=== PATIENT | female | born 1975 | race Caucasian/White ===

== ENCOUNTER 2019-03-11 16:37 | Emergency (ER) | payer SELFPAY ==
--- NOTE | 2019-03-11 16:47 | ERPHSYRPT ---
- History of Present Illness Time Seen by Provider: 03/11/19 16:46 Historian: patient Exam Limitations: no limitations Physician History: 43 y/o white femal with no cardiac hx presents with sudden onset of severe substernal cp without radiation. occurred at 1530 today. never had before. pt is on zantac for gerdz. 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 pt then suddenly collapsed while ambulating to find her . cp present on arrival. pt states she is under a lot of stress at work and works pm shift. pt denies soa and denies abd pain. Timing/Duration: today Activities at Onset: none Quality: sharpness, stabbing Location: substernal, central Chest Pain Radiation: no radiation Severity of Pain-Max: moderate Severity of Pain-Current: moderate Modifying Factors: Improves With: nothing. Worsens With: nitroglycerin, oxygen , aspirin Associated Symptoms: heartburn, No nausea, No vomiting, No palpitations, No abdominal pain, No shortness of breath, No cough, No headache Prior Chest Pain/Cardiac Workup: no prior chest pain Nitro Today/Relief: no nitro taken today Aspirin Treatment Today: provided by ED Allergies/Adverse Reactions: clindamycin Allergy (Verified 03/11/19 16:57) erythromycin base Allergy (Verified 03/11/19 16:57) Iodinated Contrast- Oral and IV Dye Allergy (Verified 03/11/19 19:02) metronidazole [From Flagyl] Allergy (Verified 03/11/19 16:57) Penicillins Allergy (Verified 03/11/19 16:57) - Review of Systems Constitutional: No Symptoms Eyes: No Symptoms Ears, Nose, & Throat: No Symptoms Respiratory: No Symptoms Cardiac: Chest Pain, No Palpitations, No Syncope Abdominal/Gastrointestinal: No Symptoms, No Abdominal Pain, No Nausea, No Vomiting, No Dysphagia Genitourinary Symptoms: No Symptoms Musculoskeletal: No Symptoms Skin: No Symptoms Neurological: No Symptoms Psychological: No Symptoms Endocrine: No Symptoms Hematologic/Lymphatic: No Symptoms Immunological/Allergic: No Symptoms All Other Systems: Reviewed and Negative - Past Medical History Neurological History: No Pertinent History ENT History: No Pertinent History Cardiac History: No Pertinent History Respiratory History: No Pertinent History Endocrine Medical History: No Pertinent History Musculoskeletal History: No Pertinent History GI Medical History: No Pertinent History History: No Pertinent History Psycho-Social History: No Pertinent History Female Reproductive Disorders: No Pertinent History - Past Surgical History Neuro Surgical History: No Pertinent History Cardiac: No Pertinent History Respiratory: No Pertinent History Gastrointestinal: No Pertinent History Genitourinary: No Pertinent History Musculoskeletal: No Pertinent History Female Surgical History: No Pertinent History - Nursing Vital Signs Nursing Vital Signs: Initial Vital Signs Pulse Rate 61 03/11/19 16:43 Respiratory Rate 20 03/11/19 16:43 Blood Pressure 124/77 03/11/19 16:43 O2 Sat by Pulse Oximetry 98 03/11/19 16:43 Pain Scale Pain Intensity 8 - Physical Exam General Appearance: mild distress, alert, anxiety Eye Exam: PERRL/EOMI Ears, Nose, Throat Exam: normal ENT inspection, moist mucous membranes Neck Exam: normal inspection, non-tender, supple, full range of motion Respiratory Exam: normal breath sounds, chest tenderness, lungs clear, No respiratory distress, No airway intact, No accessory muscle use, No rhonchi, No wheezing, No stridor Cardiovascular Exam: regular rate/rhythm, normal heart sounds, normal peripheral pulses Gastrointestinal/Abdomen Exam: soft, normal bowel sounds, No tenderness, No guarding, No rebound Pelvic Exam: not done Rectal Exam: not done Back Exam: normal inspection, normal range of motion, No CVA tenderness, No vertebral tenderness Extremity Exam: normal inspection, normal range of motion, pelvis stable Neurologic Exam: alert, oriented x 3, cooperative, 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, normal mood/affect, nml cerebellar function Skin Exam: normal color, warm, dry SpO2 Interpretation: normal O2 Delivery: Room Air - Course Nursing assessment & vital signs reviewed: Yes EKG Interpreted by Me: RATE (59), Sinus Rhythm, NORMAL AXIS, NORMAL INTERVALS, NORMAL QRS, NORMAL ST-T, Other (no comparison) Ordered Tests: Active Orders 24 hr Category Date Time Status [employer] STAT Care 03/11/19 16:52 Active EKG-ER Only STAT Care 03/11/19 16:52 Active IV Insertion STAT Care 03/11/19 16:52 Active Pulse Oximetry (ED) STAT Care 03/11/19 16:52 Active CHEST 1 VIEW (PORTABLE) Stat Exams 03/11/19 16:52 Completed CHEST WITH CONTRAST [CT] Stat Exams 03/11/19 18:02 Taken CBC W DIFF Stat Lab 03/11/19 17:10 Completed CMP Stat Lab 03/11/19 17:10 Completed D-DIMER QUANTITATION Stat Lab 03/11/19 17:10 Completed NT PRO BNP Stat Lab 03/11/19 17:10 Completed TROPONIN Q3H Lab 03/11/19 17:10 Completed TROPONIN Q3H Lab 03/11/19 20:00 Ordered TROPONIN Q3H Lab 03/11/19 23:00 Ordered TROPONIN Q3H Lab 03/12/19 02:00 Ordered TROPONIN Q3H Lab 03/12/19 05:00 Ordered Medication Summary Discontinued Medications Generic Name Dose Route Start Last Admin Trade Name Danteq PRN Reason Stop Dose Admin Acetaminophen 650 mg 03/11/19 18:54 03/11/19 19:00 Tylenol 325 Mg PO 03/11/19 18:55 Not Given STAT STA Acetaminophen Confirm 03/11/19 18:57 Tylenol 325 Mg Administered 03/11/19 18:58 Dose 650 mg .ROUTE .STK-MED ONE Aspirin 324 mg 03/11/19 16:52 03/11/19 17:21 Baby Aspirin 81 Mg Chew PO 03/11/19 16:53 324 mg STAT ONE Administration Aspirin Confirm 03/11/19 18:34 Baby Aspirin 81 Mg Chew Administered 03/11/19 18:35 Dose 324 mg .ROUTE .STK-MED ONE Diphenhydramine HCl 50 mg 03/11/19 18:55 03/11/19 19:00 Benadryl 50 Mg/Ml IV 03/11/19 18:56 50 mg STAT ONE Administration Diphenhydramine HCl Confirm 03/11/19 18:57 Benadryl 50 Mg/Ml Administered 03/11/19 18:58 Dose 50 mg .ROUTE .STK-MED ONE Famotidine Confirm 03/11/19 19:00 Pepcid 20 Mg Vial Administered 03/11/19 19:01 Dose 40 mg IV .STK-MED ONE Famotidine 40 mg 03/11/19 19:05 03/11/19 19:06 Pepcid 20 Mg Vial IV 03/11/19 19:06 40 mg STAT ONE Administration Methylprednisolone Sodium Succinate 125 mg 03/11/19 18:55 03/11/19 19:00 Solu-Medrol 125 Mg IV 03/11/19 18:56 125 mg STAT ONE Administration Methylprednisolone Sodium Succinate Confirm 03/11/19 18:57 Solu-Medrol 125 Mg Administered 03/11/19 18:58 Dose 125 mg .ROUTE .STK-MED ONE Lab/Rad Data: Laboratory Result Diagrams 03/11/19 17:10 03/11/19 17:10 Laboratory Results 03/11/19 03/11/19 03/11/19 Range/Units 17:10 17:10 17:10 WBC (4.0-10.5) K/mm3 RBC (4.1-5.4) M/mm3 Hgb (12.0-16.0) gm/dl Hct (35-47) % MCV (78-100) fl MCH (26-32) pg MCHC (32-36) g/dl RDW (11.5-14.0) % Plt Count (150-450) K/mm3 MPV (6-9.5) fl Gran % (36.0-66.0) % Eos # (Auto) (0-0.5) Absolute Lymphs (auto) (1.0-4.6) Absolute Monos (auto) (0.0-1.3) Lymphocytes % (24.0-44.0) % Monocytes % (0.0-12.0) % Eosinophils % (0.00-5.0) % Basophils % (0.0-0.4) % Absolute Granulocytes (1.4-6.9) Basophils # (0-0.4) D-Dimer 608 H* (215-500) ng/mL Sodium 141 (137-145) mmol/L Potassium 3.5 (3.5-5.1) mmol/L Chloride 106 (98-107) mmol/L Carbon Dioxide 25 (22-30) mmol/L Anion Gap 12.6 (5-15) MEQ/L BUN 7 (7-17) mg/dL Creatinine 0.78 (0.52-1.04) mg/dL Estimated GFR > 60.0 ML/MIN Glucose 102 (74-106) mg/dL Calcium 8.9 (8.4-10.2) mg/dL Total Bilirubin 0.20 (0.2-1.3) mg/dL AST 20 (14-36) U/L ALT 13 (0-35) U/L Alkaline Phosphatase 116 (38-126) U/L Troponin I < 0.012 (0.000-0.034) ng/mL NT-Pro-B Natriuret Pep 105 (0-450) pg/mL Serum Total Protein 7.3 (6.3-8.2) g/dL Albumin 3.9 (3.5-5.0) g/dL 03/11/19 Range/Units 17:10 WBC 7.1 (4.0-10.5) K/mm3 RBC 4.66 (4.1-5.4) M/mm3 Hgb 12.5 (12.0-16.0) gm/dl Hct 38.8 (35-47) % MCV 83.3 (78-100) fl MCH 26.8 (26-32) pg MCHC 32.2 (32-36) g/dl RDW 14.1 H (11.5-14.0) % Plt Count 312 (150-450) K/mm3 MPV 10.7 H (6-9.5) fl Gran % 57.7 (36.0-66.0) % Eos # (Auto) 0.29 (0-0.5) Absolute Lymphs (auto) 2.15 (1.0-4.6) Absolute Monos (auto) 0.53 (0.0-1.3) Lymphocytes % 30.4 (24.0-44.0) % Monocytes % 7.5 (0.0-12.0) % Eosinophils % 4.1 (0.00-5.0) % Basophils % 0.3 (0.0-0.4) % Absolute Granulocytes 4.09 (1.4-6.9) Basophils # 0.02 (0-0.4) D-Dimer (215-500) ng/mL Sodium (137-145) mmol/L Potassium (3.5-5.1) mmol/L Chloride (98-107) mmol/L Carbon Dioxide (22-30) mmol/L Anion Gap (5-15) MEQ/L BUN (7-17) mg/dL Creatinine (0.52-1.04) mg/dL Estimated GFR ML/MIN Glucose (74-106) mg/dL Calcium (8.4-10.2) mg/dL Total Bilirubin (0.2-1.3) mg/dL AST (14-36) U/L ALT (0-35) U/L Alkaline Phosphatase (38-126) U/L Troponin I (0.000-0.034) ng/mL NT-Pro-B Natriuret Pep (0-450) pg/mL Serum Total Protein (6.3-8.2) g/dL Albumin (3.5-5.0) g/dL - Progress Progress: improved, re-examined Air Movement: good Progress Note: 03/11/19 18:55 pt returns from [facility] chest and breaking out in a rash. will give pepcid, benadryl and steroids. 03/11/19 19:25 no cp. rash and assoc sx improving after benadryl, steroids and pepcid 03/11/19 19:54 pts rash nearly completely gone. no stridor, no wheezing. no cp cta chest-no pulm emboli. normal Blood Culture(s) Obtained: No Antibiotics given: No Counseled pt/family regarding: lab results, diagnosis, need for follow-up, rad results - Departure Departure Disposition: Home Clinical Impression: Chest pain, Allergic reaction to contrast dye, Bradycardia Condition: Stable Critical Care Time: No Referrals: Provider,Unknown [NON-STAFF PHY W/O PRIVILEGES] - Additional Instructions: continue benadryl 25mg orally 3 times daily for 4 days. continue your zantac 2 times daily. follow up with primary doctor for further management of your low heart rate. return your holter monitor as directed. Forms: Work/School Release Form Prescriptions: Prednisone 10 mg [Deltasone 10 mg] 10 mg PO TID #12 tablet
--- NOTE | 2019-03-11 17:09 | XRAY ---
Indication: Chest pain. Comparison: None Portable chest demonstrates normal heart, lungs, and bony thorax with a few incidental tiny calcified granulomas.
[2019-03-11] MEDS: BABY ASPIRIN 81 MG CHEW PO ONE (17:21)
[2019-03-11 17:25] LABS: BASOPHIL % 0.3 % (0.0-0.4); Basophil (Absolute #) 0.02 (0-0.4); Eosinophil % 4.1 % (0.00-5.0); Eosinophil (Absolute #) 0.29 (0-0.5); Granulocyte Absolute (ANC) 4.09 (1.4-6.9); Granulocytes % 57.7 % (36.0-66.0); Hematocrit 38.8 % (35-47); Hemoglobin 12.5 gm/dl (12.0-16.0); Lymphocyte (Absolute #) 2.15 (1.0-4.6); Lymphocytes % 30.4 % (24.0-44.0); Mean Cell Volume 83.3 fl (78-100); Mean Corpuscular Hemoglobin 26.8 pg (26-32); Mean Corpuscular Hgb Concent. 32.2 g/dl (32-36); Mean Platelet Volume 10.7 fl (6-9.5); Monocyte (Absolute #) 0.53 (0.0-1.3); Monocytes % 7.5 % (0.0-12.0); Platelet Count 312 K/mm3 (150-450); Red Blood Count 4.66 M/mm3 (4.1-5.4); Red Cell Distribution Width 14.1 % (11.5-14.0); White Blood Count 7.1 K/mm3 (4.0-10.5)
[2019-03-11 17:48] LABS: ALBUMIN 3.9 g/dL (3.5-5.0); ALKALINE PHOSPHATASE 116 U/L (38-126); ANION GAP 12.6 MEQ/L (5-15); BLOOD UREA NITROGEN 7 mg/dL (7-17); CHLORIDE 106 mmol/L (98-107); Calcium 8.9 mg/dL (8.4-10.2); Carbon Dioxide 25 mmol/L (22-30); Creatinine 1 0.78 mg/dL (0.52-1.04); Glucose 102 mg/dL (74-106); NT PRO BNP 105 pg/mL (0-450); Potassium 3.5 mmol/L (3.5-5.1); SGOT/AST 20 U/L (14-36); SGPT/ALT 13 U/L (0-35); SODIUM 141 mmol/L (137-145); Total Protein 7.3 g/dL (6.3-8.2)
[2019-03-11] MEDS ORDERED: BABY ASPIRIN 81 MG CHEW ONE (18:34)
[2019-03-11] MEDS ORDERED: BENADRYL 50 MG/ML ONE (18:57)
[2019-03-11] MEDS ORDERED: solu-MEDROL 125 MG ONE (18:57)
[2019-03-11] MEDS ORDERED: TYLENOL 325 MG ONE (18:57)
[2019-03-11] MEDS: solu-MEDROL 125 MG IV ONE (19:00)
[2019-03-11] MEDS ORDERED: Pepcid 20 MG VIAL IV ONE (19:00)
[2019-03-11] MEDS: BENADRYL 50 MG/ML IV ONE (19:00)
[2019-03-11] MEDS: TYLENOL 325 MG PO STA (19:00)
[2019-03-11] MEDS: Pepcid 20 MG VIAL IV ONE (19:06)
[2019-03-11 20:23] VITALS: BP 109/77; PULSE 88; O2SAT 99
--- NOTE | 2019-03-12 08:47 | XRAY ---
Indication: Chest pain. Elevated d-dimer. Multiple contiguous axial images obtained through the chest using 80 cc Isovue 370 contrast and PE protocol. Comparison: None There is good opacification of the pulmonary arteries to include the lobar and segmental branches. No filling defect or pulmonary embolus. Heart is not enlarged. Aorta is normal in course and caliber. No pathologic mediastinal/hilar lymphadenopathy. Small hiatal hernia. Lungs are inflated and clear. Bony thorax intact. Limited upper abdomen including adrenal glands are unremarkable. Impression: 1. Small hiatal hernia. 2. Remaining CT chest with contrast exam is negative. CT DI 23.44
--- NOTE | 2019-03-17 13:42 | HOLTER ---
DATE OF PROCEDURE: 03/12/2019 PROCEDURE: Holter monitor report. REASON FOR EXAMINATION: Chest pain, bradycardia. DESCRIPTION OF PROCEDURE: The patient was monitored using Holter monitor for about 23 hours and 37 minutes. The patient was in sinus rhythm throughout the recording with average rate of 65 beats/minute. The maximum rate was 120 beats/minute and the minimum rate was 49 beats/minute at 0344 hours. There was no evidence of any ventricular arrhythmia noted. There were rare premature atrial ectopies noted. No evidence of any supraventricular tachyarrhythmia. There was no evidence of any long pauses or blocks noted. IMPRESSION: 1) SINUS RHYTHM WITH BRADYCARDIC EPISODE DURING THE NIGHT. 2) RARE PAC'S.
== END 2019-03-11 20:25 | disposition home or self-care (01) ==
LOC: ED 16:37
DX: R07.9 Chest pain, unspecified (principal); T50.995A Adverse effect of other drugs, medicaments and biological substances, initial encounter; R00.1 Bradycardia, unspecified
CPT/HCPCS: 36000; 36415; 71045; 71260; 80053; 83880; 84484; 85025; 85379; 93005; 93041; 93225; 96374; 96375; 99284; J1200; J2930; A9270-GY

== ENCOUNTER 2020-01-08 19:30 | Inpatient (IN) | payer BC, OTHER ==
[2020-01-08] MEDS ORDERED: Zofran 4 MG/2 ML VIAL IV ONE (20:03)
[2020-01-08] MEDS ORDERED: Sodium Chloride 0.9% 1000 ML 1,000 ML IV STA ×2 (20:03→22:02)
[2020-01-08 20:23] LABS: Absolute Neutrophil Ct (ANC) 13.08 (1.4-6.9); BASOPHIL % 0.1 % (0.0-0.4); Basophil (Absolute #) 0.01 (0-0.4); Eosinophil (Absolute #) 0 (0-0.5); Hematocrit 39.7 % (35-47); Hemoglobin 12.9 gm/dl (12.0-16.0); Lymphocyte (Absolute #) 0.71 (1.0-4.6); Lymphocytes % 4.9 % (24.0-44.0); Mean Cell Volume 82.9 fl (78-100); Mean Corpuscular Hemoglobin 26.9 pg (26-32); Mean Corpuscular Hgb Concent. 32.5 g/dl (32-36); Mean Platelet Volume 10.8 fl (7.5-11.0); Monocyte (Absolute #) 0.66 (0.0-1.3); Monocytes % 4.6 % (0.0-12.0); Neutrophil % 90.4 % (36.0-66.0); Platelet Count 301 K/mm3 (150-450); Red Blood Count 4.79 M/mm3 (4.1-5.4); Red Cell Distribution Width 14.8 % (11.5-14.0); White Blood Count 14.5 K/mm3 (4.0-10.5)
[2020-01-08 20:35] LABS: ALKALINE PHOSPHATASE 257 U/L (38-126); AMYLASE 913 U/L (30-110); ANION GAP 12.1 MEQ/L (5-15); BLOOD UREA NITROGEN 14 mg/dL (7-17); CHLORIDE 104 mmol/L (98-107); Calcium 8.7 mg/dL (8.4-10.2); Carbon Dioxide 25 mmol/L (22-30); Creatinine 1 0.61 mg/dL (0.52-1.04); Glucose 151 mg/dL (74-106); Potassium 3.9 mmol/L (3.5-5.1); SGOT/AST 297 U/L (14-36); SGPT/ALT 297 U/L (0-35); SODIUM 138 mmol/L (137-145); Total Protein 7.3 g/dL (6.3-8.2)
[2020-01-08] MEDS ORDERED: Sodium Chloride 0.9% 1000 ML 1,000 ML ONE ×2 (20:46→22:19)
[2020-01-08] MEDS ORDERED: Zofran 4 MG/2 ML VIAL ONE (20:46)
--- NOTE | 2020-01-08 21:35 | ERPHSYRPT ---
- History of Present Illness Time Seen by Provider: 01/08/20 20:25 Historian: patient, family Patient Subjective Stated Complaint: Patient stated she woke up around 1000 this am and started vomiting. Patient stated " I tried to tough it out at home, but the pain in my ABD has just been getting worse. Patient states " my pain starts on the upper side of my ABD then it radiates to the center and around to my back". I have been having loose stools all day. Triage Nursing Assessment: Patient arrived in ER via W/C with navidisband. Patient alert and orientated times 4. Patient answers questions appropriatley. Patient with hypo-active BS in all 4 quads. Patient ABD soft round non-distended. Patient with complaints of pain upon palpitation to left side and center. Patient denies SOB. Patient denies chest pain. Oral mucosa moist. Skin turgor < 3 seconds. No S/S of dehydration noted. Physician History: This is a 44-year-old obese white female who presents with left upper quadrant abdominal pain that radiates to her left flank. Patient woke up this morning at 10 AM and was having significant abdominal pain with associated vomiting. Patient has had loose stools throughout the day as well. A couple of days ago the patient states that she actually thought she passed a kidney stone. Patient has not noticed any blood in her urine. Patient is allergic to IV contrast. Patient denies shortness of breath and denies chest pain Timing/Duration: today (This morning) Activities at Onset: none Quality: sharpness, stabbing Abdominal Pain Onset Location: LUQ Pain Radiation: flank (Left) Severity of Pain-Max: moderate Severity of Pain-Current: moderate Modifying Factors: Improves With: nothing. Worsens With: vomiting Associated Symptoms: other (Loose stools), No chest pain, No nausea, No vomiting Previous symptoms: no prior history Allergies/Adverse Reactions: clindamycin Allergy (Verified 01/08/20 19:59) erythromycin base Allergy (Verified 01/08/20 19:59) Iodinated Contrast Media [Iodinated Contrast- Oral and IV Dye] Allergy ( Verified 01/08/20 19:59) metronidazole [From Flagyl] Allergy (Verified 01/08/20 19:59) Penicillins Allergy (Verified 01/08/20 19:59) Home Medications: Esomeprazole Magnesium [Nexium] 20 mg PO DAILY 01/08/20 [History] Fluoxetine HCl 20 mg [Prozac 20 MG] 20 mg PO DAILY 01/08/20 [History] Hx Tetanus, Diphtheria Vaccination/Date Given: No Hx Influenza Vaccination/Date Given: No Hx Pneumococcal Vaccination/Date Given: No Immunizations Up to Date: Yes - Review of Systems Constitutional: No Symptoms Eyes: No Symptoms Ears, Nose, & Throat: No Symptoms Respiratory: No Symptoms Cardiac: No Symptoms, No Chest Pain Abdominal/Gastrointestinal: Abdominal Pain, No Nausea, No Vomiting Genitourinary Symptoms: No Symptoms, No Dysuria, No Frequency, No Hematuria Musculoskeletal: No Symptoms Skin: No Symptoms Neurological: No Symptoms Psychological: No Symptoms Endocrine: No Symptoms Hematologic/Lymphatic: No Symptoms Immunological/Allergic: No Symptoms All Other Systems: Reviewed and Negative - Past Medical History Pertinent Past Medical History: No Neurological History: No Pertinent History ENT History: No Pertinent History Cardiac History: No Pertinent History Respiratory History: No Pertinent History Endocrine Medical History: No Pertinent History Musculoskeletal History: No Pertinent History GI Medical History: No Pertinent History History: No Pertinent History Psycho-Social History: Depression Female Reproductive Disorders: No Pertinent History - Past Surgical History Past Surgical History: Yes Neuro Surgical History: No Pertinent History Cardiac: No Pertinent History Respiratory: No Pertinent History Gastrointestinal: No Pertinent History Genitourinary: No Pertinent History Musculoskeletal: No Pertinent History Female Surgical History: No Pertinent History Other Surgical History: wrist surgery - Social History Smoking Status: Former smoker Exposure to second hand smoke: Yes Drug Use: none Patient Lives Alone: No - Female History Hx Last Menstrual Period: Ablation Hx Now: No - Nursing Vital Signs Nursing Vital Signs: Initial Vital Signs Temperature 97.8 F 01/08/20 19:48 Pulse Rate 61 01/08/20 19:48 Respiratory Rate 18 01/08/20 19:48 Blood Pressure 104/68 01/08/20 19:48 O2 Sat by Pulse Oximetry 100 01/08/20 19:48 Pain Scale Pain Intensity 7 - Physical Exam General Appearance: moderate distress, alert, anxiety, obese Eye Exam: PERRL/EOMI, eyes nml inspection Ears, Nose, Throat Exam: normal ENT inspection, moist mucous membranes Neck Exam: normal inspection, non-tender, supple, full range of motion Respiratory Exam: normal breath sounds, lungs clear, airway intact, No chest tenderness, No respiratory distress Cardiovascular Exam: regular rate/rhythm, normal heart sounds, normal peripheral pulses Gastrointestinal/Abdomen Exam: soft, normal bowel sounds, tenderness (Left upper quadrant), guarding, No rebound Pelvic Exam: not done Rectal Exam: not done Back Exam: normal inspection, normal range of motion, CVA tenderness (Left), No vertebral tenderness Extremity Exam: normal inspection, normal range of motion, pelvis stable Neurologic Exam: alert, oriented x 3, cooperative, 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 Skin Exam: normal color, warm, dry Lymphatic Exam: No adenopathy SpO2 Interpretation: normal SpO2: 100 O2 Delivery: Room Air Ordered Tests: Active Orders 24 hr Category Date Time Status IV Insertion STAT Care 01/08/20 20:03 Active ABDOMEN AND PELVIS W/0 CONTRAS [CT] Stat Exams 01/08/20 20:04 Taken AMYLASE Stat Lab 01/08/20 20:15 Completed CBC W DIFF Stat Lab 01/08/20 20:15 Completed CMP Stat Lab 01/08/20 20:15 Completed CULTURE,URINE Stat Lab 01/08/20 21:41 Received LIPASE Stat Lab 01/08/20 20:15 Completed Lactic Acid Stat Lab 01/08/20 22:45 Completed UA W/RFX UR CULTURE Stat Lab 01/08/20 21:41 Completed Transfer Order Routine Transfer 01/08/20 Ordered Medication Summary Discontinued Medications Generic Name Dose Route Start Last Admin Trade Name Freq PRN Reason Stop Dose Admin Hydromorphone HCl 1 mg 01/08/20 22:03 01/08/20 22:21 Hydromorphone 1 Mg/Ml Ampule IV 01/08/20 22:04 1 mg STAT ONE Administration Hydromorphone HCl Confirm 01/08/20 22:19 Hydromorphone 1 Mg/Ml Ampule Administered 01/08/20 22:20 Dose 1 mg .ROUTE .STK-MED ONE Sodium Chloride 1,000 mls @ 999 mls/hr 01/08/20 20:03 01/08/20 20:49 Sodium Chloride 0.9% 1000 Ml IV 01/08/20 21:03 999 mls/hr .Q1H1M STA Administration Sodium Chloride Confirm 01/08/20 20:46 Sodium Chloride 0.9% 1000 Ml Administered 01/08/20 20:47 Dose 1,000 mls @ ud .ROUTE .STK-MED ONE Sodium Chloride 1,000 mls @ 999 mls/hr 01/08/20 22:02 01/08/20 22:22 Sodium Chloride 0.9% 1000 Ml IV 01/08/20 23:02 999 mls/hr .Q1H1M STA Administration Sodium Chloride Confirm 01/08/20 22:19 Sodium Chloride 0.9% 1000 Ml Administered 01/08/20 22:20 Dose 1,000 mls @ ud .ROUTE .STK-MED ONE Ondansetron HCl 4 mg 01/08/20 20:03 01/08/20 20:50 Zofran 4 Mg/2 Ml Vial IV 01/08/20 20:04 4 mg STAT ONE Administration Ondansetron HCl Confirm 01/08/20 20:46 Zofran 4 Mg/2 Ml Vial Administered 01/08/20 20:47 Dose 4 mg .ROUTE .STK-MED ONE Lab/Rad Data: Laboratory Result Diagrams 01/08/20 20:15 01/08/20 20:15 Laboratory Results 01/08/20 01/08/20 01/08/20 Range/Units 22:45 21:41 20:15 WBC (4.0-10.5) K/mm3 RBC (4.1-5.4) M/mm3 Hgb (12.0-16.0) gm/dl Hct (35-47) % MCV (78-100) fl MCH (26-32) pg MCHC (32-36) g/dl RDW (11.5-14.0) % Plt Count (150-450) K/mm3 MPV (7.5-11.0) fl Gran % (36.0-66.0) % Eos # (Auto) (0-0.5) Absolute Lymphs (auto) (1.0-4.6) Absolute Monos (auto) (0.0-1.3) Lymphocytes % (24.0-44.0) % Monocytes % (0.0-12.0) % Eosinophils % (0.00-5.0) % Basophils % (0.0-0.4) % Absolute Granulocytes (1.4-6.9) Basophils # (0-0.4) Sodium 138 (137-145) mmol/L Potassium 3.9 (3.5-5.1) mmol/L Chloride 104 (98-107) mmol/L Carbon Dioxide 25 (22-30) mmol/L Anion Gap 12.1 (5-15) MEQ/L BUN 14 (7-17) mg/dL Creatinine 0.61 (0.52-1.04) mg/dL Estimated GFR > 60.0 ML/MIN Glucose 151 H (74-106) mg/dL Lactic Acid 1.5 (0.4-2.0) Calcium 8.7 (8.4-10.2) mg/dL Total Bilirubin 0.70 (0.2-1.3) mg/dL AST 297 H (14-36) U/L ALT 297 H (0-35) U/L Alkaline Phosphatase 257 H (38-126) U/L Serum Total Protein 7.3 (6.3-8.2) g/dL Albumin 4.0 (3.5-5.0) g/dL Amylase 913 H (30-110) U/L Lipase 44820 H (23-300) U/L Urine Color YELLOW (YELLOW) Urine Appearance TURBID (CLEAR) Urine pH 5.0 (5-6) Ur Specific Newton 1.030 (1.005-1.025) Urine Protein 30 (Negative) Urine Ketones NEGATIVE (NEGATIVE) Urine Blood MODERATE (0-5) Khai/ul Urine Nitrite NEGATIVE (NEGATIVE) Urine Bilirubin NEGATIVE (NEGATIVE) Urine Urobilinogen NEGATIVE (0-1) mg/dL Ur Leukocyte Esterase SMALL (NEGATIVE) Urine WBC (Auto) NONE (0-5) /HPF Urine RBC (Auto) NONE (0-2) /HPF U Epithel Cells (Auto) NONE (FEW) /HPF Urine Bacteria (Auto) NONE (NEGATIVE) /HPF Urine Mucus (Auto) SLIGHT (NEGATIVE) /HPF Urine Culture Reflexed YES (NO) Urine Glucose NEGATIVE (NEGATIVE) mg/dL 01/08/20 Range/Units 20:15 WBC 14.5 H (4.0-10.5) K/mm3 RBC 4.79 (4.1-5.4) M/mm3 Hgb 12.9 (12.0-16.0) gm/dl Hct 39.7 (35-47) % MCV 82.9 (78-100) fl MCH 26.9 (26-32) pg MCHC 32.5 (32-36) g/dl RDW 14.8 H (11.5-14.0) % Plt Count 301 (150-450) K/mm3 MPV 10.8 (7.5-11.0) fl Gran % 90.4 H (36.0-66.0) % Eos # (Auto) 0 (0-0.5) Absolute Lymphs (auto) 0.71 L (1.0-4.6) Absolute Monos (auto) 0.66 (0.0-1.3) Lymphocytes % 4.9 L (24.0-44.0) % Monocytes % 4.6 (0.0-12.0) % Eosinophils % 0.0 (0.00-5.0) % Basophils % 0.1 (0.0-0.4) % Absolute Granulocytes 13.08 H (1.4-6.9) Basophils # 0.01 (0-0.4) Sodium (137-145) mmol/L Potassium (3.5-5.1) mmol/L Chloride (98-107) mmol/L Carbon Dioxide (22-30) mmol/L Anion Gap (5-15) MEQ/L BUN (7-17) mg/dL Creatinine (0.52-1.04) mg/dL Estimated GFR ML/MIN Glucose (74-106) mg/dL Lactic Acid (0.4-2.0) Calcium (8.4-10.2) mg/dL Total Bilirubin (0.2-1.3) mg/dL AST (14-36) U/L ALT (0-35) U/L Alkaline Phosphatase (38-126) U/L Serum Total Protein (6.3-8.2) g/dL Albumin (3.5-5.0) g/dL Amylase (30-110) U/L Lipase (23-300) U/L Urine Color (YELLOW) Urine Appearance (CLEAR) Urine pH (5-6) Ur Specific Newton (1.005-1.025) Urine Protein (Negative) Urine Ketones (NEGATIVE) Urine Blood (0-5) Khai/ul Urine Nitrite (NEGATIVE) Urine Bilirubin (NEGATIVE) Urine Urobilinogen (0-1) mg/dL Ur Leukocyte Esterase (NEGATIVE) Urine WBC (Auto) (0-5) /HPF Urine RBC (Auto) (0-2) /HPF U Epithel Cells (Auto) (FEW) /HPF Urine Bacteria (Auto) (NEGATIVE) /HPF Urine Mucus (Auto) (NEGATIVE) /HPF Urine Culture Reflexed (NO) Urine Glucose (NEGATIVE) mg/dL - Progress Progress: improved, re-examined Progress Note: 01/08/20 23:27 CAT scan of the abdomen and pelvis shows a pancreas that is enlarged and edematous. There is peripancreatic stranding with fluid there is fluid anterior in the pararenal space and fluid in the. Colic gutter bilaterally. There is no evidence of pancreatic necrosis abscess or air. The there is evidence of cholelithiasis but no biliary dilatation seen. There is mild thickening of the stomach wall and this is likely reactive. I spoke with Dr. Stark. I reviewed the patient's history, condition, laboratory results and CAT scan findings. We will admit her into the hospital with IV hydration, pain control, antiemetics, and repeat laboratory data. Discussed with DrEkta: Kinza Gilbert Will see patient in: hospital (full admit) Counseled pt/family regarding: lab results, diagnosis, rad results - Departure Departure Disposition: Home, In-patient Admission Clinical Impression: Acute pancreatitis, Leukocytosis, Vomiting and diarrhea, Elevated liver enzymes Condition: Stable Critical Care Time: No Referrals: CAROLYN MORALES DO [Primary Care Provider] -
[2020-01-08 21:36] LABS: LIPASE 14086 U/L (23-300)
[2020-01-08] MEDS ORDERED: Hydromorphone 1 mg/ml Ampule IV ONE (22:03)
[2020-01-08] MEDS ORDERED: Hydromorphone 1 mg/ml Ampule ONE (22:19)
[2020-01-08 22:41] LABS: Appearance TURBID (CLEAR); Bilirubin NEGATIVE (NEGATIVE); Blood MODERATE Ery/ul (0-5); Glucose NEGATIVE (NEGATIVE); Ketones NEGATIVE (NEGATIVE); Leukocyte Esterase SMALL (NEGATIVE); Mucus SLIGHT /HPF (NEGATIVE); Nitrite NEGATIVE (NEGATIVE); Protein,Urine Dip 30 (Negative); Urobilinogen NEGATIVE mg/dL (0-1)
[2020-01-09] MEDS ORDERED: FEVERALL 650 MG PR PRN (00:54)
[2020-01-09] MEDS: Sodium Chloride 0.9% 1000 ML 1,000 ML IV SCH ×3 (01:30→15:29)
[2020-01-09] MEDS: Zofran 4 MG/2 ML VIAL IV PRN (01:51)
[2020-01-09] MEDS: DILAUDID 2 MG INJECTION IV PRN ×5 (02:23→22:39)
[2020-01-09 04:54] LABS: Absolute Neutrophil Ct (ANC) 12.38 (1.4-6.9); BASOPHIL % 0.1 % (0.0-0.4); Basophil (Absolute #) 0.01 (0-0.4); Eosinophil % 0.1 % (0.00-5.0); Eosinophil (Absolute #) 0.01 (0-0.5); Hematocrit 34.2 % (35-47); Hemoglobin 11.1 gm/dl (12.0-16.0); Lymphocyte (Absolute #) 1.13 (1.0-4.6); Lymphocytes % 7.9 % (24.0-44.0); Mean Cell Volume 83.4 fl (78-100); Mean Corpuscular Hemoglobin 27.1 pg (26-32); Mean Corpuscular Hgb Concent. 32.5 g/dl (32-36); Mean Platelet Volume 10.8 fl (7.5-11.0); Monocyte (Absolute #) 0.83 (0.0-1.3); Monocytes % 5.8 % (0.0-12.0); Neutrophil % 86.1 % (36.0-66.0); Platelet Count 268 K/mm3 (150-450); Red Cell Distribution Width 14.9 % (11.5-14.0); White Blood Count 14.4 K/mm3 (4.0-10.5)
[2020-01-09 04:56] LABS: ALBUMIN 3.2 g/dL (3.5-5.0); ALKALINE PHOSPHATASE 184 U/L (38-126); ANION GAP 8.6 MEQ/L (5-15); BLOOD UREA NITROGEN 13 mg/dL (7-17); CHLORIDE 110 mmol/L (98-107); Calcium 7.6 mg/dL (8.4-10.2); Carbon Dioxide 23 mmol/L (22-30); Creatinine 1 0.44 mg/dL (0.52-1.04); Glucose 113 mg/dL (74-106); Potassium 3.3 mmol/L (3.5-5.1); SGOT/AST 148 U/L (14-36); SGPT/ALT 217 U/L (0-35); SODIUM 138 mmol/L (137-145); Total Protein 6.1 g/dL (6.3-8.2)
--- NOTE | 2020-01-09 08:09 | XRAY ---
Indication: Pain with palpitation. Nausea, vomiting, diarrhea. Multiple contiguous axial images obtained through the abdomen and pelvis without contrast as ordered. Comparison: None Lung bases are clear. Heart is not enlarged. Small hiatal hernia. Noncontrasted stomach and bowel loops appear nonobstructed. Pancreas appears diffusely enlarged and edematous with peripancreatic stranding favoring acute pancreatitis. Small free fluid in abdomen and pelvis presumed reactive. No walled off fluid collection or free air. Duodenal wall thickening also favored to be reactive. Small 1 cm gallstone. Prominent and nodular appearing uterus, suggestive of uterine leiomyomatosis. Remaining liver, gallbladder, spleen, adrenal glands, kidneys, ureters, bladder, and aorta appear unremarkable for noncontrast exam. Osseous structures intact. Impression: 1. CT findings favoring acute pancreatitis with reactive small abdomen/pelvic free fluid and duodenal wall thickening. 2. Incidental gallstone and uterine leiomyomatosis. Comment: Preliminary interpretation was made by [facility]. No critical discrepancy.
[2020-01-09] MEDS: D5W/0.45NS W/ 20mEq KCl 1000 ML 1,000 ML IV SCH (18:54)
--- NOTE | 2020-01-09 19:56 | XRAY ---
Indication: Acute pancreatitis. Two-dimensional gallbladder sonogram performed. Comparison: None Gallbladder normally distended with a few subcentimeter gallstones near the fundus. No abnormal gallbladder wall thickening or pericholecystic fluid. Common bile duct measures 7 mm. No intrahepatic biliary distention. Visualized portions of the liver appear homogeneous without hepatomegaly. Tiny perihepatic free fluid. Visualized pancreatic head unremarkable. Right kidney appears normal measuring 11.2 cm in length. Impression: Cholelithiasis without cholecystitis or biliary distention. Tiny perihepatic fluid presumed related to pancreatitis.
--- NOTE | 2020-01-09 23:18 | PCM.HP ---
History of Present Illness - Chief Complaint Chief Complaint: Acute pancreatitis, Leukocytosis, vomiting and diarrhea History of Present Illness: is a 44 year old female who presented to ER with acute onset of severe left upper abdominal pain and vomiting. She has had loose stools all week and some nausea , awoke this morning with vomiting then upper abdominal pain. Denies fever.has not eaten anything and only sips of fluid the day of admission. Patient is in good health otherwise. She does have chronic sinusitis and depression controlled on meds and obesity. She still has her gallbladder and has no Hx alcohol abuse or drug abuse. - Review of Systems Constitutional: No Symptoms Eyes: No Symptoms Ears, Nose, & Throat: Nose Congestion (uses flonase) Respiratory: No Symptoms Cardiac: No Symptoms Abdominal/Gastrointestinal: Abdominal Pain, Nausea, Vomiting Genitourinary Symptoms: No Symptoms Musculoskeletal: No Symptoms Skin: No Symptoms Neurological: No Symptoms Psychological: Depression (controlled on meds) Endocrine: No Symptoms Hematologic/Lymphatic: No Symptoms Immunological/Allergic: Other (chronic sinusitis due to env allergies) Medications & Allergies Home Medications: Home Medication List Esomeprazole Magnesium [Nexium] 20 mg PO HS 01/08/20 [History Confirmed 01/09/20 ] Fluoxetine HCl 20 mg [Prozac 20 MG] 20 mg PO HS 01/08/20 [History Confirmed 01/09/20] Allergies/Adverse Reactions: Allergies Allergy/AdvReac Type Severity Reaction Status Date / Time Iodinated Contrast Media Allergy Severe Tightness Verified 01/09/20 01:02 [Iodinated Contrast- Oral of Throat and IV Dye] metronidazole [From Flagyl] Allergy Severe Tightness Verified 01/09/20 01:02 of Throat clindamycin Allergy Intermediate Hives Verified 01/09/20 01:02 erythromycin base Allergy Intermediate Hives Verified 01/09/20 01:02 Penicillins Allergy Mild Hives Verified 01/09/20 01:02 - Past Medical History Past Medical History: No Neurological History: No Pertinent History ENT History: No Pertinent History Respiratory History: No Pertinent History Endocrine Medical History: No Pertinent History Musculoskelatal History: No Pertinent History GI Medical History: No Pertinent History History: No Pertinent History Pyscho-Social History: Anxiety, Depression Reproductive Disorders: Abnormal Uterine Bleeding, Fibroids Comment: Bradycardia - Female History Hx Last Menstrual Period: Ablation Are you now?: No - Past Surgical History Past Surgical History: Yes Neuro Surgical History: No Pertinent History Cardiac History: No Pertinent History Respiratory Surgery: No Pertinent History GI Surgical History: No Pertinent History Genitourinary Surgical Hx: No Pertinent History Musculskeletal Surgical Hx: Other Female Surgical History: Tubal Ligation Other Surgical History: Both wrist surgery 2013. Tubal 2003 - Social History Smoking Status: Former smoker Exposure to second hand smoke: Yes Alcohol: None Drug Use: none - Physical Exam Vital Signs: Vital Signs - 24 hr Temp Pulse Resp BP Pulse Ox 01/09/20 20:00 98.5 F 86 18 104/58 95 01/09/20 16:00 98.1 F 81 16 107/57 97 01/09/20 12:00 97.9 F 86 14 109/55 98 01/09/20 08:00 98.3 F 75 14 104/55 92 L 01/09/20 04:15 98.2 F 76 17 107/55 97 01/09/20 04:00 98 01/09/20 03:50 98 01/09/20 01:46 98.1 F 64 18 103/55 100 01/08/20 23:59 69 16 110/69 100 01/08/20 23:40 100 General Appearance: mild distress (is sleepy from pain meds and upper mid and left abd pain level is 2/10) Eye Exam: eyes nml inspection Ears, Nose, Throat Exam: other (nasal congestioon,no purulent discharge) Neck Exam: normal inspection Respiratory Exam: normal breath sounds, lungs clear Cardiovascular Exam: regular rate/rhythm Gastrointestinal/Abdomen Exam: soft, normal bowel sounds, tenderness ( epigastrum and left upper abdomen), guarding Pelvic Exam: not done Rectal Exam: not done Back Exam: other (no CVA tenderness) Extremity Exam: normal inspection Skin Exam: normal color, warm, dry (Patient had upper abd US at the bedside and tech did not see stone in ducts-formal report on Saturday) Results - Labs Lab/Micro Results: Lab Results-Last 24 Hours 01/08/20 01/08/20 01/09/20 Range/Units 21:41 22:45 04:00 WBC (4.0-10.5) K/mm3 RBC (4.1-5.4) M/mm3 Hgb (12.0-16.0) gm/dl Hct (35-47) % MCV (78-100) fl MCH (26-32) pg MCHC (32-36) g/dl RDW (11.5-14.0) % Plt Count (150-450) K/mm3 MPV (7.5-11.0) fl Gran % (36.0-66.0) % Eos # (Auto) (0-0.5) Absolute Lymphs (auto) (1.0-4.6) Absolute Monos (auto) (0.0-1.3) Lymphocytes % (24.0-44.0) % Monocytes % (0.0-12.0) % Eosinophils % (0.00-5.0) % Basophils % (0.0-0.4) % Absolute Granulocytes (1.4-6.9) Basophils # (0-0.4) Sodium (137-145) mmol/L Potassium (3.5-5.1) mmol/L Chloride (98-107) mmol/L Carbon Dioxide (22-30) mmol/L Anion Gap (5-15) MEQ/L BUN (7-17) mg/dL Creatinine (0.52-1.04) mg/dL Estimated GFR ML/MIN Glucose (74-106) mg/dL Lactic Acid 1.5 (0.4-2.0) Calcium (8.4-10.2) mg/dL Total Bilirubin (0.2-1.3) mg/dL AST (14-36) U/L ALT (0-35) U/L Alkaline Phosphatase (38-126) U/L Serum Total Protein (6.3-8.2) g/dL Albumin (3.5-5.0) g/dL Amylase 702 H (30-110) U/L Lipase (23-300) U/L Urine Color YELLOW (YELLOW) Urine Appearance TURBID (CLEAR) Urine pH 5.0 (5-6) Ur Specific Vill[place] 1.030 (1.005-1.025) Urine Protein 30 (Negative) Urine Ketones NEGATIVE (NEGATIVE) Urine Blood MODERATE (0-5) Khai/ul Urine Nitrite NEGATIVE (NEGATIVE) Urine Bilirubin NEGATIVE (NEGATIVE) Urine Urobilinogen NEGATIVE (0-1) mg/dL Ur Leukocyte Esterase SMALL (NEGATIVE) Urine WBC (Auto) NONE (0-5) /HPF Urine RBC (Auto) NONE (0-2) /HPF U Epithel Cells (Auto) NONE (FEW) /HPF Urine Bacteria (Auto) NONE (NEGATIVE) /HPF Urine Mucus (Auto) SLIGHT (NEGATIVE) /HPF Urine Culture Reflexed YES (NO) Urine Glucose NEGATIVE (NEGATIVE) mg/dL 01/09/20 01/09/20 01/09/20 Range/Units 04:00 04:45 04:45 WBC 14.4 H (4.0-10.5) K/mm3 RBC 4.10 (4.1-5.4) M/mm3 Hgb 11.1 L (12.0-16.0) gm/dl Hct 34.2 L (35-47) % MCV 83.4 (78-100) fl MCH 27.1 (26-32) pg MCHC 32.5 (32-36) g/dl RDW 14.9 H (11.5-14.0) % Plt Count 268 (150-450) K/mm3 MPV 10.8 (7.5-11.0) fl Gran % 86.1 H (36.0-66.0) % Eos # (Auto) 0.01 (0-0.5) Absolute Lymphs (auto) 1.13 (1.0-4.6) Absolute Monos (auto) 0.83 (0.0-1.3) Lymphocytes % 7.9 L (24.0-44.0) % Monocytes % 5.8 (0.0-12.0) % Eosinophils % 0.1 (0.00-5.0) % Basophils % 0.1 (0.0-0.4) % Absolute Granulocytes 12.38 H (1.4-6.9) Basophils # 0.01 (0-0.4) Sodium 138 (137-145) mmol/L Potassium 3.3 L (3.5-5.1) mmol/L Chloride 110 H (98-107) mmol/L Carbon Dioxide 23 (22-30) mmol/L Anion Gap 8.6 (5-15) MEQ/L BUN 13 (7-17) mg/dL Creatinine 0.44 L (0.52-1.04) mg/dL Estimated GFR > 60.0 ML/MIN Glucose 113 H (74-106) mg/dL Lactic Acid (0.4-2.0) Calcium 7.6 L (8.4-10.2) mg/dL Total Bilirubin 0.50 (0.2-1.3) mg/dL AST 148 H (14-36) U/L ALT 217 H (0-35) U/L Alkaline Phosphatase 184 H (38-126) U/L Serum Total Protein 6.1 L (6.3-8.2) g/dL Albumin 3.2 L (3.5-5.0) g/dL Amylase (30-110) U/L Lipase 9614 H (23-300) U/L Urine Color (YELLOW) Urine Appearance (CLEAR) Urine pH (5-6) Ur Specific Vill[place] (1.005-1.025) Urine Protein (Negative) Urine Ketones (NEGATIVE) Urine Blood (0-5) Khai/ul Urine Nitrite (NEGATIVE) Urine Bilirubin (NEGATIVE) Urine Urobilinogen (0-1) mg/dL Ur Leukocyte Esterase (NEGATIVE) Urine WBC (Auto) (0-5) /HPF Urine RBC (Auto) (0-2) /HPF U Epithel Cells (Auto) (FEW) /HPF Urine Bacteria (Auto) (NEGATIVE) /HPF Urine Mucus (Auto) (NEGATIVE) /HPF Urine Culture Reflexed (NO) Urine Glucose (NEGATIVE) mg/dL - Radiology Impressions Radiology Exams & Impressions: Radiology Procedures Category Date Time Status ABDOMEN AND PELVIS W/0 CONTRAS [CT] Stat Exams 01/08/20 20:04 Completed GALLBLADDER [US] Urgent Exams 01/09/20 17:21 Completed Assessment/Plan (1) Acute pancreatitis Current Visit: Yes Status: Acute Assessment & Plan: probable gallstone pancreatitis,surgery consult and abd US requested Code(s): K85.90 - ACUTE PANCREATITIS WITHOUT NECROSIS OR INFECTION, UNSP (2) Cholelithiasis Current Visit: Yes Status: Acute
[2020-01-10] MEDS: DILAUDID 2 MG INJECTION IV PRN ×4 (02:35→20:24)
[2020-01-10] MEDS: D5W/0.45NS W/ 20mEq KCl 1000 ML 1,000 ML IV SCH ×3 (02:45→20:25)
[2020-01-10 06:16] LABS: BASOPHIL % 0.1 % (0.0-0.4); Basophil (Absolute #) 0.02 (0-0.4); Eosinophil % 0.5 % (0.00-5.0); Eosinophil (Absolute #) 0.08 (0-0.5); Hematocrit 31.8 % (35-47); Hemoglobin 10.6 gm/dl (12.0-16.0); Lymphocyte (Absolute #) 1.22 (1.0-4.6); Lymphocytes % 8.1 % (24.0-44.0); Mean Cell Volume 85.9 fl (78-100); Mean Corpuscular Hemoglobin 28.6 pg (26-32); Mean Corpuscular Hgb Concent. 33.3 g/dl (32-36); Mean Platelet Volume 10.8 fl (7.5-11.0); Monocyte (Absolute #) 1.18 (0.0-1.3); Monocytes % 7.8 % (0.0-12.0); Neutrophil % 83.5 % (36.0-66.0); Platelet Count 237 K/mm3 (150-450); Red Cell Distribution Width 14.9 % (11.5-14.0); White Blood Count 15.1 K/mm3 (4.0-10.5)
[2020-01-10 06:17] LABS: ALBUMIN 3.1 g/dL (3.5-5.0); ALKALINE PHOSPHATASE 145 U/L (38-126); AMYLASE 261 U/L (30-110); ANION GAP 5.8 MEQ/L (5-15); BLOOD UREA NITROGEN 6 mg/dL (7-17); CHLORIDE 105 mmol/L (98-107); Carbon Dioxide 29 mmol/L (22-30); Creatinine 1 0.59 mg/dL (0.52-1.04); Glucose 108 mg/dL (74-106); LIPASE 1494 U/L (23-300); Potassium 3.9 mmol/L (3.5-5.1); SGOT/AST 66 U/L (14-36); SGPT/ALT 137 U/L (0-35); SODIUM 136 mmol/L (137-145)
[2020-01-10] MEDS: ROCEPHIN 1 Gm-D5w 50 ml Bag** 1 G/50 ML IVPB IV SCH (09:20)
--- NOTE | 2020-01-10 12:23 | PCM.CONS ---
History of Present Illness - Reason for Consult Chief Complaint: Acute pancreatitis, Leukocytosis, vomiting and diarrhea Reason for Consult: gallstone pancreatitis Requesting Provider: CAROLYN MORALES DO Consulting Provider: RAYNA PENNY MD History of Present Illness: is a 44 year old female presents with abd pain. saturday pain. worsened so went to ED.ruq, epigastric, luq abd pain. elevated enzymes. ct with pancreatitis, gallstones, US with gallstones normal biliary tree. admitted to medical service. pain today is doing significantly better still requiring some pain meds. - Review of Systems All Other Systems: Reviewed and Negative (complete ROS reviewed from H&P.) Medications & Allergies Home Medications: Home Medication List Esomeprazole Magnesium [Nexium] 20 mg PO HS 01/08/20 [History Confirmed 01/09/20 ] Fluoxetine HCl 20 mg [Prozac 20 MG] 20 mg PO HS 01/08/20 [History Confirmed 01/09/20] Allergies/Adverse Reactions: Allergies Allergy/AdvReac Type Severity Reaction Status Date / Time Iodinated Contrast Media Allergy Severe Tightness Verified 01/09/20 01:02 [Iodinated Contrast- Oral of Throat and IV Dye] metronidazole [From Flagyl] Allergy Severe Tightness Verified 01/09/20 01:02 of Throat clindamycin Allergy Intermediate Hives Verified 01/09/20 01:02 erythromycin base Allergy Intermediate Hives Verified 01/09/20 01:02 Penicillins Allergy Mild Hives Verified 01/09/20 01:02 - Past Medical History Past Medical History: No Neurological History: No Pertinent History ENT History: No Pertinent History Cardiac History: Other Respiratory History: No Pertinent History Endocrine Medical History: No Pertinent History Musculoskelatal History: No Pertinent History GI Medical History: No Pertinent History History: No Pertinent History Pyscho-Social History: Anxiety, Depression Reproductive Disorders: Abnormal Uterine Bleeding, Fibroids Comment: Bradycardia - Female History Hx Last Menstrual Period: Ablation Are you now?: No - Past Surgical History Past Surgical History: Yes Neuro Surgical History: No Pertinent History Cardiac History: No Pertinent History Respiratory Surgery: No Pertinent History GI Surgical History: No Pertinent History Genitourinary Surgical Hx: No Pertinent History Musculskeletal Surgical Hx: Other Female Surgical History: Tubal Ligation Other Surgical History: Both wrist surgery 2012. Tubal 2002 - Social History Smoking Status: Former smoker Exposure to second hand smoke: Yes Alcohol: None Drug Use: none - Physical Exam Vital Signs: Vital Signs - 24 hr Temp Pulse Resp BP Pulse Ox 01/10/20 12:00 99.0 F 74 17 110/62 96 01/10/20 07:31 98.3 F 81 17 118/61 95 01/10/20 04:00 98.1 F 92 H 18 114/66 97 01/10/20 00:00 98.7 F 78 16 111/59 95 01/09/20 20:00 98.5 F 86 18 104/58 95 01/09/20 16:00 98.1 F 81 16 107/57 97 General Appearance: no apparent distress, alert Neurologic Exam: alert, oriented x 3 Eye Exam: eyes nml inspection, No scleral icterus Respiratory Exam: No respiratory distress Cardiovascular Exam: capillary refill <2 sec, No edema Gastrointestinal/Abdomen Exam: soft, tenderness (mild dist, soft, ttp ruq, epigastrium no r/g.) Pelvic Exam: not done Rectal Exam: deferred Extremity Exam: No pedal edema Skin Exam: normal color, warm Results - Labs Lab/Micro Results: Lab Results-Last 24 Hours 01/09/20 01/09/20 01/10/20 Range/Units 04:00 04:00 05:35 WBC 15.1 H (4.0-10.5) K/mm3 RBC 3.70 L (4.1-5.4) M/mm3 Hgb 10.6 L (12.0-16.0) gm/dl Hct 31.8 L (35-47) % MCV 85.9 (78-100) fl MCH 28.6 (26-32) pg MCHC 33.3 (32-36) g/dl RDW 14.9 H (11.5-14.0) % Plt Count 237 (150-450) K/mm3 MPV 10.8 (7.5-11.0) fl Gran % 83.5 H (36.0-66.0) % Eos # (Auto) 0.08 (0-0.5) Absolute Lymphs (auto) 1.22 (1.0-4.6) Absolute Monos (auto) 1.18 (0.0-1.3) Lymphocytes % 8.1 L (24.0-44.0) % Monocytes % 7.8 (0.0-12.0) % Eosinophils % 0.5 (0.00-5.0) % Basophils % 0.1 (0.0-0.4) % Absolute Granulocytes 12.60 H (1.4-6.9) Basophils # 0.02 (0-0.4) Sodium (137-145) mmol/L Potassium (3.5-5.1) mmol/L Chloride (98-107) mmol/L Carbon Dioxide (22-30) mmol/L Anion Gap (5-15) MEQ/L BUN (7-17) mg/dL Creatinine (0.52-1.04) mg/dL Estimated GFR ML/MIN Glucose (74-106) mg/dL Calcium (8.4-10.2) mg/dL Total Bilirubin (0.2-1.3) mg/dL AST (14-36) U/L ALT (0-35) U/L Alkaline Phosphatase (38-126) U/L Serum Total Protein (6.3-8.2) g/dL Albumin (3.5-5.0) g/dL Amylase 702 H (30-110) U/L Lipase 9614 H (23-300) U/L 01/10/20 Range/Units 05:35 WBC (4.0-10.5) K/mm3 RBC (4.1-5.4) M/mm3 Hgb (12.0-16.0) gm/dl Hct (35-47) % MCV (78-100) fl MCH (26-32) pg MCHC (32-36) g/dl RDW (11.5-14.0) % Plt Count (150-450) K/mm3 MPV (7.5-11.0) fl Gran % (36.0-66.0) % Eos # (Auto) (0-0.5) Absolute Lymphs (auto) (1.0-4.6) Absolute Monos (auto) (0.0-1.3) Lymphocytes % (24.0-44.0) % Monocytes % (0.0-12.0) % Eosinophils % (0.00-5.0) % Basophils % (0.0-0.4) % Absolute Granulocytes (1.4-6.9) Basophils # (0-0.4) Sodium 136 L (137-145) mmol/L Potassium 3.9 (3.5-5.1) mmol/L Chloride 105 (98-107) mmol/L Carbon Dioxide 29 (22-30) mmol/L Anion Gap 5.8 (5-15) MEQ/L BUN 6 L (7-17) mg/dL Creatinine 0.59 (0.52-1.04) mg/dL Estimated GFR > 60.0 ML/MIN Glucose 108 H (74-106) mg/dL Calcium 8.0 L (8.4-10.2) mg/dL Total Bilirubin 0.40 (0.2-1.3) mg/dL AST 66 H (14-36) U/L ALT 137 H (0-35) U/L Alkaline Phosphatase 145 H (38-126) U/L Serum Total Protein 6.0 L (6.3-8.2) g/dL Albumin 3.1 L (3.5-5.0) g/dL Amylase 261 H (30-110) U/L Lipase 1494 H (23-300) U/L Microbiology 01/08/20 21:41 Urine Culture - Final Clean Catch Midstream MIXED BUCK; 3 OR MORE TYPES. NO PREDOMINANT ORGANISM. NO FURTHER WORKUP. PLEASE RESUBMIT IF CLINICALLY INDICATED. - Radiology Impressions Radiology Exams & Impressions: Radiology Procedures Category Date Time Status ABDOMEN AND PELVIS W/0 CONTRAS [CT] Stat Exams 01/08/20 20:04 Completed GALLBLADDER [US] Urgent Exams 01/09/20 17:21 Completed Assessment/Plan (1) Acute pancreatitis Current Visit: Yes Status: Acute Assessment & Plan: 44yo female gallstone pancreatitis, improving clinically, but still with moderate pain. Exam nonperitoneal, ct with some ascites, stones, US with gallstones normal biliary tree no evidence of biliary obstruction. -continue supportive care -ok for CLD. NPO p midnight. -will perform cholecystectomy prior to discharge, possibly tomorrow if continued clinical improvement. Code(s): K85.90 - ACUTE PANCREATITIS WITHOUT NECROSIS OR INFECTION, UNSP
--- NOTE | 2020-01-10 13:56 | PCM.NOTE ---
Date and Time: 01/10/20 1328 Subjective Assessment: Patient is feeling better today,less abd pain today and is feeling hungry . Had few bites of jello without any problem. She was seen by Dr Tristen Pablo who explained how the gallbladder releasing a stone caused the pancreatitis . Plan is to have cholecystectomy, possibly tomorrow. Will be NPO after midnight tonight. Objective Exam General Appearance: no apparent distress (is resting) Neurologic Exam: alert, oriented x 3, cooperative (f) Skin Exam: normal color, warm, dry Neck Exam: normal inspection Respiratory Exam: normal breath sounds Cardiovascular Exam: regular rate/rhythm Gastrointestinal/Abdomen Exam: soft, normal bowel sounds, tenderness (LUQ 1+/4, no rebound no guarding today) Extremity Exam: normal inspection OBJECTIVE DATA Vital Signs: Vital Signs - 24 hr Temp Pulse Resp BP Pulse Ox 01/10/20 12:00 99.0 F 74 17 110/62 96 01/10/20 08:00 16 01/10/20 07:31 98.3 F 81 17 118/61 95 01/10/20 04:00 98.1 F 92 H 18 114/66 97 01/10/20 00:00 98.7 F 78 16 111/59 95 01/09/20 20:00 98.5 F 86 18 104/58 95 01/09/20 16:00 98.1 F 81 16 107/57 97 Pain Assessment - Last Documented Pain Intensity 1 Pain Scale Used 0-10 Pain Scale Intake and Output: Intake & Output 01/08/20 01/09/20 01/10/20 01/11/20 11:59 11:59 11:59 11:59 Intake Total 319 3512 Output Total 250 1450 Balance 69 2062 Weight 88 kg Lab Results: Lab Results-Last 24 Hours 01/09/20 01/09/20 01/10/20 Range/Units 04:00 04:00 05:35 WBC 15.1 H (4.0-10.5) K/mm3 RBC 3.70 L (4.1-5.4) M/mm3 Hgb 10.6 L (12.0-16.0) gm/dl Hct 31.8 L (35-47) % MCV 85.9 (78-100) fl MCH 28.6 (26-32) pg MCHC 33.3 (32-36) g/dl RDW 14.9 H (11.5-14.0) % Plt Count 237 (150-450) K/mm3 MPV 10.8 (7.5-11.0) fl Gran % 83.5 H (36.0-66.0) % Eos # (Auto) 0.08 (0-0.5) Absolute Lymphs (auto) 1.22 (1.0-4.6) Absolute Monos (auto) 1.18 (0.0-1.3) Lymphocytes % 8.1 L (24.0-44.0) % Monocytes % 7.8 (0.0-12.0) % Eosinophils % 0.5 (0.00-5.0) % Basophils % 0.1 (0.0-0.4) % Absolute Granulocytes 12.60 H (1.4-6.9) Basophils # 0.02 (0-0.4) Sodium (137-145) mmol/L Potassium (3.5-5.1) mmol/L Chloride (98-107) mmol/L Carbon Dioxide (22-30) mmol/L Anion Gap (5-15) MEQ/L BUN (7-17) mg/dL Creatinine (0.52-1.04) mg/dL Estimated GFR ML/MIN Glucose (74-106) mg/dL Calcium (8.4-10.2) mg/dL Total Bilirubin (0.2-1.3) mg/dL AST (14-36) U/L ALT (0-35) U/L Alkaline Phosphatase (38-126) U/L Serum Total Protein (6.3-8.2) g/dL Albumin (3.5-5.0) g/dL Amylase 702 H (30-110) U/L Lipase 9614 H (23-300) U/L 01/10/20 Range/Units 05:35 WBC (4.0-10.5) K/mm3 RBC (4.1-5.4) M/mm3 Hgb (12.0-16.0) gm/dl Hct (35-47) % MCV (78-100) fl MCH (26-32) pg MCHC (32-36) g/dl RDW (11.5-14.0) % Plt Count (150-450) K/mm3 MPV (7.5-11.0) fl Gran % (36.0-66.0) % Eos # (Auto) (0-0.5) Absolute Lymphs (auto) (1.0-4.6) Absolute Monos (auto) (0.0-1.3) Lymphocytes % (24.0-44.0) % Monocytes % (0.0-12.0) % Eosinophils % (0.00-5.0) % Basophils % (0.0-0.4) % Absolute Granulocytes (1.4-6.9) Basophils # (0-0.4) Sodium 136 L (137-145) mmol/L Potassium 3.9 (3.5-5.1) mmol/L Chloride 105 (98-107) mmol/L Carbon Dioxide 29 (22-30) mmol/L Anion Gap 5.8 (5-15) MEQ/L BUN 6 L (7-17) mg/dL Creatinine 0.59 (0.52-1.04) mg/dL Estimated GFR > 60.0 ML/MIN Glucose 108 H (74-106) mg/dL Calcium 8.0 L (8.4-10.2) mg/dL Total Bilirubin 0.40 (0.2-1.3) mg/dL AST 66 H (14-36) U/L ALT 137 H (0-35) U/L Alkaline Phosphatase 145 H (38-126) U/L Serum Total Protein 6.0 L (6.3-8.2) g/dL Albumin 3.1 L (3.5-5.0) g/dL Amylase 261 H (30-110) U/L Lipase 1494 H (23-300) U/L Radiology Exams: Radiology Procedures Category Date Time Status ABDOMEN AND PELVIS W/0 CONTRAS [CT] Stat Exams 01/08/20 20:04 Completed GALLBLADDER [US] Urgent Exams 01/09/20 17:21 Completed Assessment/Plan (1) Gallstone pancreatitis Current Visit: Yes Status: Acute Assessment & Plan: surgery consult today ,possible cholycystectomy tomorrow if continues to improve. Code(s): K85.10 - BILIARY ACUTE PANCREATITIS WITHOUT NECROSIS OR INFECTION
[2020-01-10] MEDS: Zofran 4 MG/2 ML VIAL IV PRN (14:43)
[2020-01-11] MEDS: TYLENOL 325 MG PO PRN ×3 (00:38→12:22)
[2020-01-11] MEDS: D5W/0.45NS W/ 20mEq KCl 1000 ML 1,000 ML IV SCH (04:42)
[2020-01-11 06:36] LABS: ALBUMIN 3.3 g/dL (3.5-5.0); ALKALINE PHOSPHATASE 149 U/L (38-126); ANION GAP 7.2 MEQ/L (5-15); BLOOD UREA NITROGEN 5 mg/dL (7-17); CHLORIDE 108 mmol/L (98-107); Calcium 8.2 mg/dL (8.4-10.2); Carbon Dioxide 28 mmol/L (22-30); Creatinine 1 0.62 mg/dL (0.52-1.04); Glucose 100 mg/dL (74-106); LIPASE 357 U/L (23-300); Potassium 3.8 mmol/L (3.5-5.1); SGOT/AST 36 U/L (14-36); SGPT/ALT 103 U/L (0-35); SODIUM 139 mmol/L (137-145); Total Protein 6.5 g/dL (6.3-8.2)
[2020-01-11 07:06] LABS: Absolute Neutrophil Ct (ANC) 9.36 (1.4-6.9); BASOPHIL % 0.2 % (0.0-0.4); Basophil (Absolute #) 0.02 (0-0.4); Eosinophil % 1.9 % (0.00-5.0); Eosinophil (Absolute #) 0.23 (0-0.5); Hematocrit 32.9 % (35-47); Hemoglobin 10.5 gm/dl (12.0-16.0); Lymphocyte (Absolute #) 1.52 (1.0-4.6); Lymphocytes % 12.5 % (24.0-44.0); Mean Cell Volume 86.1 fl (78-100); Mean Corpuscular Hemoglobin 27.5 pg (26-32); Mean Corpuscular Hgb Concent. 31.9 g/dl (32-36); Mean Platelet Volume 10.8 fl (7.5-11.0); Monocyte (Absolute #) 1.02 (0.0-1.3); Monocytes % 8.4 % (0.0-12.0); Platelet Count 248 K/mm3 (150-450); Red Blood Count 3.82 M/mm3 (4.1-5.4); Red Cell Distribution Width 14.7 % (11.5-14.0); White Blood Count 12.2 K/mm3 (4.0-10.5)
[2020-01-11] MEDS: ROCEPHIN 1 Gm-D5w 50 ml Bag** 1 G/50 ML IVPB IV SCH (08:59)
[2020-01-11] MEDS: DILAUDID 2 MG INJECTION IV PRN (09:14)
[2020-01-11 10:49] LABS: AMYLASE 79 U/L (30-110)
[2020-01-11] MEDS ORDERED: Xylocaine-Mpf 2% 5 Ml Vial ONE (12:42)
[2020-01-11] MEDS ORDERED: DIPRIVAN 200 MG/20 ML IV ONE (12:42)
[2020-01-11] MEDS ORDERED: Zemuron 100 MG/10 ML ONE (12:42)
[2020-01-11] MEDS ORDERED: Versed 2 MG/2 ML Injection ONE (12:42)
[2020-01-11] MEDS ORDERED: SUBLIMAZE 250 MCG/5 ML ONE (12:43)
[2020-01-11] MEDS ORDERED: Levofloxacin 500MG/100ML D5W 500 MG/100 ML BAG IV SCH (13:00)
[2020-01-11] MEDS ORDERED: Lactated Ringers 1,000 ML IV SCH (13:00)
[2020-01-11] MEDS ORDERED: Sensorcaine 0.25% 10 ML ONE (13:48)
[2020-01-11] MEDS ORDERED: PHENYLEPHRINE HCL ONE (14:36)
[2020-01-11] MEDS ORDERED: BRIDION 200MG/2ML IV ONE (14:41)
[2020-01-11] MEDS ORDERED: Zofran 4 MG/2 ML VIAL ONE (14:43)
--- NOTE | 2020-01-11 15:19 | CONS ---
CONSULT DATE: 01/11/2020 HISTORY: This patient was seen in follow up for Dr. Jimmy Pablo who saw the patient over the weekend. A 44 year-old female has been here since Saturday. She had some gallstone pancreatitis, apparently had cholelithiasis and signs of cholecystitis when she initially came in. She had very elevated lipase actually 14,000 initially and came down to 1494 yesterday and actually down to 357 today. Total bilirubin 0.4, AST 36, ALT 103, alkaline phosphatase just slightly elevated at 149. Amylase 79, lipase 357 today still requiring a little bit of narcotics for her pancreatitis but still her pancreatitis has cooled down enough to warrant consideration of cholecystectomy. PAST MEDICAL HISTORY: Reviewed. HOME MEDICATIONS: Reviewed. ALLERGIES: PENICILLIN IN THE PAST BUT SHE HAS TAKEN AMOXICILLIN AND CEPHALOSPORINS. FAMILY HISTORY: Reviewed. SOCIAL HISTORY: Reviewed. PAST SURGICAL HISTORY: Reviewed. She had tubal in the past. REVIEW OF SYSTEMS: Fourteen systems reviewed. PHYSICAL EXAMINATION: CHEST: Equal excursion, nonlabored breathing. CVS: Regular rate and rhythm. ABDOMEN: Soft. She had some mild tenderness epigastrium. No peritoneal signs. EXTREMITIES: No cyanosis. NEURO: Alert, moving extremities. IMPRESSION: I feel she has gallstone pancreatitis. Her pancreas cooled down. I feel she is a candidate to consider proceed with cholecystectomy at this time. She was explained the risk in detail but not limited to bleeding and infection, risk of trocar injury or hernia, small risk of bowel, bladder, blood vessel injury, some bile leak, bile duct injury, retained stone or sludge possibly requiring further procedure either open or ERCP, general risk of anesthesia, deep venous thrombosis, pulmonary embolism, pneumonia, perioperative risk of aches, pains, bloating, loose stool possibly chronic in nature, general risk of anesthesia, deep venous thrombosis, pulmonary embolism, pneumonia, possibly open procedure, possibility with this procedure that she may very well have persistent pain from her pancreatitis and there are some patients who developed recurrent pancreatitis, chronic pancreatitis. She understands and agrees to the planned procedure, will proceed with laparoscopic cholecystectomy possible open when OR time available.
--- NOTE | 2020-01-11 16:37 | PCM.NOTE ---
Date and Time: 01/11/20 1635 Subjective Assessment: Patient was seen today with Dr Dagoberto Lisa surgeon just finishing his visit with Nga. He states she will be having Cholecystectomy today since Lipase is down significantly. Patient c/o headache behind her eyes thiks due to Dilaudid.and being NPO. Objective Exam General Appearance: mild distress Neurologic Exam: alert, oriented x 3 Respiratory Exam: normal breath sounds Cardiovascular Exam: regular rate/rhythm Gastrointestinal/Abdomen Exam: tenderness OBJECTIVE DATA Vital Signs: Vital Signs - 24 hr Temp Pulse Resp BP Pulse Ox 01/11/20 13:10 98.3 F 69 16 103/58 95 01/11/20 12:00 98.3 F 69 14 101/73 95 01/11/20 08:00 98.3 F 67 16 103/58 95 01/11/20 04:00 99.0 F 83 16 116/68 95 01/11/20 00:00 98.1 F 87 18 128/78 97 01/10/20 20:00 98.6 F 88 18 118/65 95 Pain Assessment - Last Documented Pain Intensity 4 Pain Scale Used 0-10 Pain Scale Intake and Output: Intake & Output 01/09/20 01/10/20 01/11/20 01/12/20 11:59 11:59 11:59 11:59 Intake Total 319 3512 2948 Output Total 250 1450 2500 Balance 69 2062 448 Weight 88 kg 88 kg Lab Results: Lab Results-Last 24 Hours 01/11/20 01/11/20 Range/Units 05:50 05:50 WBC 12.2 H (4.0-10.5) K/mm3 RBC 3.82 L (4.1-5.4) M/mm3 Hgb 10.5 L (12.0-16.0) gm/dl Hct 32.9 L (35-47) % MCV 86.1 (78-100) fl MCH 27.5 (26-32) pg MCHC 31.9 L (32-36) g/dl RDW 14.7 H (11.5-14.0) % Plt Count 248 (150-450) K/mm3 MPV 10.8 (7.5-11.0) fl Gran % 77.0 H (36.0-66.0) % Eos # (Auto) 0.23 (0-0.5) Absolute Lymphs (auto) 1.52 (1.0-4.6) Absolute Monos (auto) 1.02 (0.0-1.3) Lymphocytes % 12.5 L (24.0-44.0) % Monocytes % 8.4 (0.0-12.0) % Eosinophils % 1.9 (0.00-5.0) % Basophils % 0.2 (0.0-0.4) % Absolute Granulocytes 9.36 H (1.4-6.9) Basophils # 0.02 (0-0.4) Sodium 139 (137-145) mmol/L Potassium 3.8 (3.5-5.1) mmol/L Chloride 108 H (98-107) mmol/L Carbon Dioxide 28 (22-30) mmol/L Anion Gap 7.2 (5-15) MEQ/L BUN 5 L (7-17) mg/dL Creatinine 0.62 (0.52-1.04) mg/dL Estimated GFR > 60.0 ML/MIN Glucose 100 (74-106) mg/dL Calcium 8.2 L (8.4-10.2) mg/dL Total Bilirubin 0.40 (0.2-1.3) mg/dL AST 36 (14-36) U/L ALT 103 H (0-35) U/L Alkaline Phosphatase 149 H (38-126) U/L Serum Total Protein 6.5 (6.3-8.2) g/dL Albumin 3.3 L (3.5-5.0) g/dL Amylase 79 (30-110) U/L Lipase 357 H (23-300) U/L Radiology Exams: Radiology Procedures Category Date Time Status GALLBLADDER [US] Urgent Exams 01/09/20 17:21 Completed Assessment/Plan (1) Gallstone pancreatitis Current Visit: Yes Status: Resolved Assessment & Plan: surgery today lap cholecystectomy Code(s): K85.10 - BILIARY ACUTE PANCREATITIS WITHOUT NECROSIS OR INFECTION
[2020-01-11] MEDS: MORPHINE SULFATE 4 MG INJ IV PRN ×3 (16:47→22:26)
[2020-01-12] MEDS: MORPHINE SULFATE 4 MG INJ IV PRN (01:06)
[2020-01-12] MEDS: NORCO 5/325 MG PO PRN ×4 (03:50→22:29)
[2020-01-12 05:00] LABS: Hematocrit 32.4 % (35-47); Hemoglobin 10.3 gm/dl (12.0-16.0); Mean Cell Volume 85.7 fl (78-100); Mean Corpuscular Hemoglobin 27.2 pg (26-32); Mean Corpuscular Hgb Concent. 31.8 g/dl (32-36); Mean Platelet Volume 10.4 fl (7.5-11.0); Platelet Count 283 K/mm3 (150-450); Red Blood Count 3.78 M/mm3 (4.1-5.4); Red Cell Distribution Width 14.6 % (11.5-14.0); White Blood Count 11.5 K/mm3 (4.0-10.5)
[2020-01-12 05:15] LABS: ALBUMIN 3.4 g/dL (3.5-5.0); BILIRUBIN,TOTAL 0.4 mg/dL (0.2-1.3); Direct Bilirubin 0.2 mg/dL (0.0-0.4); Total Protein 6.6 g/dL (6.3-8.2)
[2020-01-12] MEDS: D5W/0.45NS W/ 20mEq KCl 1000 ML 1,000 ML IV SCH ×4 (06:39→15:50)
--- NOTE | 2020-01-12 08:10 | OP ---
SURGERY DATE/TIME: 01/12/2020 1349 PREOPERATIVE DIAGNOSIS: Gallstone pancreatitis, cholelithiasis, chronic cholecystitis. POSTOPERATIVE DIAGNOSIS: Gallstone pancreatitis, cholelithiasis, chronic cholecystitis. PROCEDURE: Laparoscopic cholecystectomy. SURGEON: Dr. Yohan Ospina. ANESTHESIA: General. ESTIMATED BLOOD LOSS: Minimal. INDICATIONS: As noted above. Risks and benefits explained in detail but not limited to and consent obtained. DESCRIPTION OF PROCEDURE AND FINDINGS: The patient is taken to the operating room. General anesthesia induced. Abdomen prepped and draped in the usual sterile fashion. After official time out and no disagreement with planned procedure, a transverse incision made at the supraumbilical area. Fascia grasped and pulled upward. Veress needle inserted and tested with saline. Pneumoperitoneum accomplished insufflating opening pressure of 0-15. An 11 mm bladeless port and camera inserted without difficulty followed by two - 5 mm right upper quadrant ports and 11 mm epigastric port that was later switched to 12 port. There is no evidence of any intra-abdominal injury secondary to trocar insertion. She did have some ascites from her recent pancreatitis. The gallbladder grasped retracted over the edge of the liver, had some chronic inflammation. Dissection carried posterior lateral to anterior fashion. The common bile duct well visualized. There was a short stumpy cystic duct infundibulum area directly to the common duct. It was slowly and carefully skeletonized until the critical view obtained both anteriorly and posteriorly as well as cystic artery skeletonized until critical view obtained anterior and posteriorly. Cystic artery is then clipped x3 and divided in usual fashion. There were a couple of oozing side branches off the artery to the infundibular area that were isolated and clipped. Slowly and carefully the cystic duct and infundibulum was carefully well skeletonized until critical view obtained both anterior and posteriorly. The infundibulum almost went directly down to the common duct. It was felt it would be best to control this to reduce the risk of leaking using EndoGIA stapler. 12 port was placed. As a critical view had been obtained both anterior and posteriorly, the stapler was then carefully fired across the infundibulum, cystic duct junction area and also the visible common bile duct staying away from the visible common bile duct. The gallbladder is slowly and carefully dissected free from its dense attachment to liver bed. There was some pulsatile oozing side branches off the cystic artery directly on the gallbladder wall that required clipping as necessary. Pulsatile ooze anterior to the liver required placing two clips and a third clip for additional pulsatile area anterior to the liver. Gallbladder slowly and carefully dissected free. One of the graspers tore a small pinhole spilling a small amount of bile. There was no evidence of any stone spillage. The gallbladder suctioned free, continued dissecting the gallbladder free staying directly on the gallbladder wall. Just prior to releasing from final attachments to the anterior edge of the liver, the liver bed re-inspected. Clips noted in place cystic duct and cystic artery stumps. No signs of any active bleeding or bile leakage. In the liver bed clips noted in place cystic artery stumps, cystic duct stump to secure the staple line. No signs of any leakage. Because of the extensive inflammation, it was felt she would benefit from temporary GIANCARLO drain. A 7 flat GIANCARLO drain was placed subhepatic space out the lateral port incision and placed to bulb suction. Fascia defect 10/11 site closed with puncture closure device with #11 Vicryl. Pneumoperitoneum decompressed. The wound irrigated out. Skin incision closed with 4-0 Vicryl. Steri-Strips and sterile dressing applied. 0.25% Marcaine local injected along the skin incision fascial defect. Findings discussed with the family out in the waiting area. She was transferred to the recovery room in stable condition. The patient was seen for Dr. Jimmy Pablo who had seen the patient over the weekend. As she was in for pancreatitis, she was observed overnight. If her labs are stable tomorrow and her GIANCARLO is not bilious likely could discontinue the GIANCARLO drain and possibly discharge her home tomorrow.
[2020-01-12] MEDS: ENOXAPARIN SODIUM SQ SCH (09:57)
[2020-01-12] MEDS: ROCEPHIN 1 Gm-D5w 50 ml Bag** 1 G/50 ML IVPB IV SCH (10:01)
[2020-01-12] MEDS ORDERED: NON-FORMULARY ITEM (Esomeprazole Magnesium [Nexium] 20 MG) PO SCH (22:00)
[2020-01-12] MEDS ORDERED: Prozac 20 MG PO SCH (22:00)
[2020-01-12] MEDS ORDERED: Protonix 20MG Tablet PO SCH (22:00)
--- NOTE | 2020-01-13 00:07 | PCM.NOTE ---
Date and Time: 01/12/20 Subjective Assessment: Patient is POD #1 and has been up with nurse to use the bathroom,states she is feeling pretty weak and shakey when out of bed. Pain is controlld on [place] . Is tolerating a full diet. Objective Exam General Appearance: mild distress, lethargy Neurologic Exam: alert, oriented x 3, cooperative Skin Exam: normal color, warm, dry Respiratory Exam: normal breath sounds Cardiovascular Exam: regular rate/rhythm Gastrointestinal/Abdomen Exam: other (serosanguinous liquid in drain,no bile.) OBJECTIVE DATA Vital Signs: Vital Signs - 24 hr Temp Pulse Resp BP Pulse Ox 01/13/20 00:00 16 01/12/20 23:33 98.2 F 60 16 107/58 97 01/12/20 20:00 99.9 F 83 18 113/63 97 01/12/20 16:00 98.8 F 73 18 118/74 95 01/12/20 12:00 18 01/12/20 11:36 99.0 F 82 17 102/59 96 01/12/20 08:00 18 01/12/20 07:46 97.2 F 75 18 121/62 01/12/20 04:00 98.8 F 77 16 104/67 92 L Pain Assessment - Last Documented Pain Intensity 2 Pain Scale Used 0-10 Pain Scale Intake and Output: Intake & Output 01/10/20 01/11/20 01/12/20 01/13/20 11:59 11:59 11:59 11:59 Intake Total 3512 2948 2052 1522 Output Total 1450 2500 2390 2520 Balance 2061 056 -338 -998 Weight 88 kg Lab Results: Lab Results-Last 24 Hours 01/12/20 01/12/20 Range/Units 04:20 04:20 WBC 11.5 H (4.0-10.5) K/mm3 RBC 3.78 L (4.1-5.4) M/mm3 Hgb 10.3 L (12.0-16.0) gm/dl Hct 32.4 L (35-47) % MCV 85.7 (78-100) fl MCH 27.2 (26-32) pg MCHC 31.8 L (32-36) g/dl RDW 14.6 H (11.5-14.0) % Plt Count 283 (150-450) K/mm3 MPV 10.4 (7.5-11.0) fl Total Bilirubin 0.40 (0.2-1.3) mg/dL Direct Bilirubin 0.2 (0.0-0.4) mg/dL AST 33 (14-36) U/L ALT 82 H (0-35) U/L Alkaline Phosphatase 141 H (38-126) U/L Serum Total Protein 6.6 (6.3-8.2) g/dL Albumin 3.4 L (3.5-5.0) g/dL Lipase 247 (23-300) U/L Assessment/Plan (1) Gallstone pancreatitis Current Visit: Yes Status: Resolved Assessment & Plan: POD#1 S/P lap cholecystectomy - Spoke with surgeon,Dr Arenas who feels patient can go home this evening or in the AM. Patient is feeling shakey and very tired and wants to go home in the morning.Patient has suffered alot this admission with pancreatitis which has resolved and is finally resting. Code(s): K85.10 - BILIARY ACUTE PANCREATITIS WITHOUT NECROSIS OR INFECTION
[2020-01-13] MEDS: D5W/0.45NS W/ 20mEq KCl 1000 ML 1,000 ML IV SCH (00:30)
[2020-01-13] MEDS ORDERED: Sodium Chloride 0.9% 10 ML FLUSH Syringe IV PRN (06:45)
[2020-01-13] MEDS: ENOXAPARIN SODIUM SQ SCH (09:58)
[2020-01-13] MEDS: ROCEPHIN 1 Gm-D5w 50 ml Bag** 1 G/50 ML IVPB IV SCH (09:58)
[2020-01-13] MEDS: NORCO 5/325 MG PO PRN (09:59)
--- NOTE | 2020-01-13 10:12 | PCM.DS ---
Discharge Summary Date of Admission: 01/09/20 00:51 Admitting Physician: CAROLYN MORALES DO Consults: Consults on Case 01/09/20 16:22 Consult Surgery ROUTINE Primary Care Provider: CAROLYN MORALES DO Allergies Allergies Iodinated Contrast Media [Iodinated Contrast- Oral and IV Dye] Allergy (Severe, Verified 01/09/20 01:02) Tightness of Throat Thorat closes shut metronidazole [From Flagyl] Allergy (Severe, Verified 01/09/20 01:02) Tightness of Throat clindamycin Allergy (Intermediate, Verified 01/09/20 01:02) Hives erythromycin base Allergy (Intermediate, Verified 01/09/20 01:02) Hives Penicillins Allergy (Mild, Verified 01/09/20 01:02) Hives Rash [facility] Summary - Hospital Course Hospital Course: patient was admitted thru ER with Dg acute pancreratitis ,found to have gallstone pancreatitis and afte Lipase levels had significantly improved and LUQ pain improved,patient underwent Lap cholecystectomy. She will be discharged home under the care of her on oral pain meds and activity as tolerated, gradually returning to work at [employer]. - Vitals & Intake/Output Vital Signs: Vital Signs Temperature 98.2 F 01/13/20 08:00 Pulse Rate 76 01/13/20 08:00 Respiratory Rate 16 01/13/20 08:00 Blood Pressure 120/63 01/13/20 08:00 O2 Sat by Pulse Oximetry 92 L 01/13/20 08:00 Intake & Output: Intake & Output 01/10/20 01/11/20 01/12/20 01/13/20 11:59 11:59 11:59 11:59 Intake Total 3512 2948 2052 3525 Output Total 1450 2500 2390 3970 Balance 2062 448 338 -445 Weight 88 kg - Lab Result Diagrams: 01/12/20 04:20 01/11/20 05:50 Micro Results-Entire Visit: Microbiology 01/08/20 21:41 Urine Culture - Final Clean Catch Midstream MIXED BUCK; 3 OR MORE TYPES. NO PREDOMINANT ORGANISM. NO FURTHER WORKUP. PLEASE RESUBMIT IF CLINICALLY INDICATED. Discharge Exam General Appearance: no apparent distress Neurologic Exam: alert, oriented x 3 Respiratory Exam: normal breath sounds Cardiovascular Exam: regular rate/rhythm Gastrointestinal/Abdomen Exam: soft, other (drain with serosanguinous liquid.) Final Diagnosis/Problem List - Final Discharge Diagnosis/Problem (1) Gallstone pancreatitis Current Visit: Yes Status: Resolved Assessment & Plan: post op day #2,discharge home Code(s): K85.10 - BILIARY ACUTE PANCREATITIS WITHOUT NECROSIS OR INFECTION - Discharge Disposition: Home, Self-Care Condition: Stable Prescriptions: Continue Fluoxetine HCl 20 mg [Prozac 20 MG] 20 mg PO HS Esomeprazole Magnesium [Nexium] 20 mg PO HS Follow up with: POLY ABRAMS [COURTESY STAFF] - 1 Week CAROLYN MORALES DO [Primary Care Provider] - 1 Week
[2020-01-13 12:06] VITALS: BP 103/66; PULSE 86; O2SAT 98
[2020-01-13] MEDS ORDERED: Sodium Chloride 0.9% 10 ML FLUSH Syringe IV SCH (14:00)
== END 2020-01-13 13:25 | disposition home or self-care (01) | DRG 418 ==
LOC: ED 19:30 → MED SURG 01-09 00:51
PROVIDERS: ADMIT Family Medicine; ATTEND Family Medicine
PROC: 0FT44ZZ Resection of Gallbladder, Percutaneous Endoscopic Approach (ICD-10-PCS; principal; 2020-01-12)
DX: K85.10 Biliary acute pancreatitis without necrosis or infection (principal); K80.10 Calculus of gallbladder with chronic cholecystitis without obstruction; D72.829 Elevated white blood cell count, unspecified; R19.7 Diarrhea, unspecified; R11.10 Vomiting, unspecified; Z79.899 Other long term (current) drug therapy; R51 Headache
CPT/HCPCS: 36000; 36415; 74176; 76705; 80053; 80076; 81001; 82150; 83605; 83690; 85025; 85027; 87086; 88304; 96374; 96375; 99285; J0696; J1170; J1650; J1956; J2250; J2270; J2370; J2405; J2704; J3010; A9270-GY

== ENCOUNTER 2025-03-09 08:38 | Observation (INO) | payer OTHER ==
[2025-03-09] MEDS ORDERED: celeBREX 100 MG ONE (08:53)
[2025-03-09] MEDS ORDERED: Transderm Scop 1.5MG Patch ONE (08:53)
[2025-03-09] MEDS ORDERED: Lactated Ringers 1,000 ML IV ONE ×3 (08:53→15:11)
[2025-03-09] MEDS ORDERED: NEURONTIN ONE (08:53)
[2025-03-09] MEDS: celeBREX 100 MG PO ONE (08:56)
[2025-03-09] MEDS: Transderm Scop 1.5MG Patch TOP ONE (08:56)
[2025-03-09] MEDS: NEURONTIN PO ONE (08:56)
[2025-03-09] MEDS: Lactated Ringers 1,000 ML IV SCH ×2 (08:56→16:30)
[2025-03-09 09:42] LABS: HCG URINE TEST NEGATIVE (NEGATIVE)
[2025-03-09 09:50] LABS: Absolute Neutrophil Ct (ANC) 4.57 x10^3/uL (1.56-6.13); BASOPHIL % 0.4 % (0.1-1.2); Basophil (Absolute #) 0.03 x10^3/uL (0.01-0.08); Eosinophil % 5.1 % (0.7-5.8); Eosinophil (Absolute #) 0.37 x10^3/uL (0.04-0.36); Hematocrit 37.6 % (34.1-44.9); Hemoglobin 12.5 g/dL (11.2-15.7); IMMATURE GRAN # 0.01 x10^3u/L (0.001-0.031); IMMATURE GRAN % 0.1 % (0.001-0.429); Lymphocyte (Absolute #) 1.81 x10^3/uL (1.18-3.74); Lymphocytes % 24.8 % (19.3-51.7); Mean Cell Volume 79.7 fL (79.4-94.8); Mean Corpuscular Hemoglobin 26.5 pg (25.6-32.2); Mean Corpuscular Hgb Concent. 33.2 g/dL (32.2-35.5); Mean Platelet Volume 9.8 fL (9.4-12.3); Monocyte (Absolute #) 0.52 x10^3/uL (0.24-0.86); Monocytes % 7.1 % (4.7-12.5); Neutrophil % 62.5 % (34.0-71.1); Platelet Count 309 x10^3/uL (182-369); Red Blood Count 4.72 x10^6/uL (3.93-5.22); Red Cell Distribution Width 13.5 % (11.7-14.4); White Blood Count 7.3 x10^3/uL (3.98-10.04)
[2025-03-09 10:03] LABS: ALBUMIN 4.3 g/dL (3.5-5.0); ANION GAP 13.8 MEQ/L (5-15); BILIRUBIN,TOTAL 0.4 mg/dL (0.2-1.3); Calcium 8.9 mg/dL (8.4-10.2); Creatinine 1 0.78 mg/dL (0.52-1.04); EST GLOMERULAR FILTRATION RATE 94.2 ML/MIN; Potassium 4.1 mmol/L (3.5-5.1)
[2025-03-09] MEDS ORDERED: propofoL IV ONE (11:40)
[2025-03-09] MEDS ORDERED: ROCURONIUM BROMIDE IV ONE (11:40)
[2025-03-09] MEDS ORDERED: Versed 2 MG/2 ML Injection ONE (11:40)
[2025-03-09] MEDS ORDERED: SUBLIMAZE 100 MCG/2 ML ONE ×2 (11:40→14:34)
[2025-03-09] MEDS ORDERED: Xylocaine-Mpf 2% 5 Ml Vial ONE (13:32)
[2025-03-09] MEDS ORDERED: ROBINUL ONE (13:55)
[2025-03-09] MEDS ORDERED: BRIDION 200MG/2ML IV ONE (13:57)
[2025-03-09] MEDS ORDERED: Zofran 4 MG/2 ML VIAL ONE (13:57)
[2025-03-09] MEDS ORDERED: TORAdol 30 mg Injection ONE (13:57)
[2025-03-09] MEDS ORDERED: Naropin 0.5% 30 ML VIAL ONE (14:04)
[2025-03-09] MEDS ORDERED: Zofran 4 MG/2 ML VIAL IV PRN (14:27)
[2025-03-09] MEDS ORDERED: HYDROMORPHONE 30 MG/30 ML-NS PCA IV PRN (14:30)
[2025-03-09] MEDS ORDERED: Narcan 0.4 MG/ML IV PRN (14:30)
[2025-03-09 14:45] LABS: Appearance Clear (Clear); Bacteria None Seen /HPF (None Seen); Bilirubin Negative (Negative); Blood Negative (Negative); Epithelial Cells None Seen /HPF (None Seen); Glucose, Urine Negative (Negative); Hyaline Casts NONE SEEN /LPF (0-2); Ketones Negative (Negative); Leukocyte Esterase Negative (Negative); Nitrite Negative (Negative); Protein,Urine Dip Negative (Negative); RBC 0-2 /HPF (0-5); Urobilinogen 0.2 mg/dL (0.2); WBC 0-2 /HPF (0-5)
[2025-03-09] MEDS ORDERED: TORAdol 10 MG TABLET PO PRN (16:03)
[2025-03-09] MEDS ORDERED: MORPHINE SULFATE 2 MG INJ IV PRN (16:04)
[2025-03-09] MEDS ORDERED: MORPHINE SULFATE 4 MG INJ IV PRN ×2 (16:08→16:10)
[2025-03-09] MEDS: Mylicon 80MG PO SCH (16:20)
[2025-03-09] MEDS: Reglan 10 MG/2 ML IV SCH (16:20)
[2025-03-09] MEDS: TORAdol 30 mg Injection IV PRN (16:20)
[2025-03-09] MEDS: CEFAZOLIN 2 GM/100 ML NaCl 2 GM/100 ML IVPB IV SCH (16:27)
[2025-03-09] MEDS ORDERED: MEDICATION INTERVENTION MC SCH (16:30)
[2025-03-09] MEDS: NICODERM CQ 14 MG TOP SCH (17:09)
[2025-03-09] MEDS: NON-FORMULARY ITEM PO SCH (18:05)
[2025-03-09 18:21] LABS: Hematocrit 35.5 % (34.1-44.9); Hemoglobin 11.4 g/dL (11.2-15.7); Mean Cell Volume 81.1 fL (79.4-94.8); Mean Corpuscular Hgb Concent. 32.1 g/dL (32.2-35.5); Platelet Count 281 x10^3/uL (182-369); Red Blood Count 4.38 x10^6/uL (3.93-5.22); Red Cell Distribution Width 13.7 % (11.7-14.4); White Blood Count 13.2 x10^3/uL (3.98-10.04)
[2025-03-09] MEDS: Docusate Sodium 100 MG PO SCH (21:17)
[2025-03-09] MEDS: BUSPAR 5 MG PO SCH (21:17)
[2025-03-09] MEDS: lamICTAL 100MG TABLET PO SCH (21:17)
[2025-03-10 05:01] LABS: Hematocrit 31.8 % (34.1-44.9); Hemoglobin 10.2 g/dL (11.2-15.7); Mean Cell Volume 81.3 fL (79.4-94.8); Mean Corpuscular Hemoglobin 26.1 pg (25.6-32.2); Mean Corpuscular Hgb Concent. 32.1 g/dL (32.2-35.5); Mean Platelet Volume 10.4 fL (9.4-12.3); Platelet Count 273 x10^3/uL (182-369); Red Blood Count 3.91 x10^6/uL (3.93-5.22); White Blood Count 8.6 x10^3/uL (3.98-10.04)
[2025-03-10 05:28] LABS: ALBUMIN 3.2 g/dL (3.5-5.0); ANION GAP 11.8 MEQ/L (5-15); BILIRUBIN,TOTAL 0.2 mg/dL (0.2-1.3); Creatinine 1 0.84 mg/dL (0.52-1.04); EST GLOMERULAR FILTRATION RATE 86.2 ML/MIN; Potassium 3.8 mmol/L (3.5-5.1); Total Protein 5.4 g/dL (6.3-8.2)
--- NOTE | 2025-03-10 07:46 | PCM.NOTE ---
Date and Time: 03/10/25 0739 Subjective Assessment: pod 1 sp victoraino b/l salpingectomy pt resting in bed and concerned with low bp. states not having bp this low in the past. tolerating diet. vitals stable however low bp abd; soft, incision c/d/intact ext; no clubbing cyanosis or edema urine output; adequate a/p sp victoriano; b/l salpingectomy secondary to fibroid uterus; hypotension, bradycardia will consult hospitalist for evaluation of hypotension olivarez discontinued will monitor bp Objective Data Vital Signs: Vital Signs - 24 hr Temp Pulse Resp BP Pulse Ox 03/10/25 07:13 98.0 F 60 16 87/43 93 L 03/10/25 03:44 97.7 F 48 L 17 84/48 94 L 03/09/25 23:42 69 F 48 L 17 84/50 94 L 03/09/25 20:00 99.4 F 48 L 15 99/73 98 03/09/25 18:00 98.0 F 49 L 18 94/61 99 03/09/25 17:00 97.9 F 60 18 110/55 100 03/09/25 16:35 97.9 F 48 L 16 97/53 100 03/09/25 16:20 99.5 F 45 L 16 109/57 100 03/09/25 15:45 49 L 16 98/59 98 03/09/25 15:30 97.9 F 109 H 16 97/53 94 L 03/09/25 15:20 98.7 F 49 L 16 102/57 100 03/09/25 09:41 98.1 F 67 18 114/72 99 03/09/25 09:35 98.1 F 67 18 114/72 99 Pain Assessment - Last Documented Pain Intensity [Anterior] 4 Pain Intensity 3 Pain Scale Used [facility] Intake and Output: Intake & Output 03/07/25 03/08/25 03/09/25 03/10/25 11:59 11:59 11:59 11:59 Intake Total 2538 Output Total 1850 Balance 688 Weight 89.9 kg 89.3 kg Lab Results: Lab Results-Last 24 Hours 03/09/25 03/09/25 03/09/25 Range/Units 09:30 09:48 09:48 WBC 7.3 (3.98-10.04) x10^3/uL RBC 4.72 (3.93-5.22) x10^6/uL Hgb 12.5 (11.2-15.7) g/dL Hct 37.6 (34.1-44.9) % MCV 79.7 (79.4-94.8) fL MCH 26.5 (25.6-32.2) pg MCHC 33.2 (32.2-35.5) g/dL RDW 13.5 (11.7-14.4) % Plt Count 309 (182-369) x10^3/uL MPV 9.8 (9.4-12.3) fL Gran % 62.5 (34.0-71.1) % Immature Gran % (Auto) 0.1 (0.001-0.429) % Nucleat RBC Rel Count 0.0 (0.00-0.2) % Eos # (Auto) 0.37 H (0.04-0.36) x10^3/uL Immature Gran # (Auto) 0.01 (0.001-0.031) x10^3u/L Absolute Lymphs (auto) 1.81 (1.18-3.74) x10^3/uL Absolute Monos (auto) 0.52 (0.24-0.86) x10^3/uL Absolute Nucleated RBC 0.00 (0.00-0.012) x10^3u/L Lymphocytes % 24.8 (19.3-51.7) % Monocytes % 7.1 (4.7-12.5) % Eosinophils % 5.1 (0.7-5.8) % Basophils % 0.4 (0.1-1.2) % Absolute Granulocytes 4.57 (1.56-6.13) x10^3/uL Basophils # 0.03 (0.01-0.08) x10^3/uL Sodium 139 (135-145) mmol/L Potassium 4.1 (3.5-5.1) mmol/L Chloride 104 (98-107) mmol/L Carbon Dioxide 25 (22-30) mmol/L Anion Gap 13.8 (5-15) MEQ/L BUN 10 (7-17) mg/dL Creatinine 0.78 (0.52-1.04) mg/dL Estimated GFR 94.2 ML/MIN Glucose 89 (74-106) mg/dL Calcium 8.9 (8.4-10.2) mg/dL Total Bilirubin 0.40 (0.2-1.3) mg/dL AST 29 (14-36) U/L ALT 21 (0-35) U/L Alkaline Phosphatase 110 (38-126) U/L Serum Total Protein 7.0 (6.3-8.2) g/dL Albumin 4.3 (3.5-5.0) g/dL Urine Color (Yellow) Urine Appearance (Clear) Urine pH (4.6-8.0) Ur Specific [place] (1.005-1.030) Urine Protein (Negative) Urine Glucose (UA) (Negative) mg/dL Urine Ketones (Negative) Urine Blood (Negative) Urine Nitrite (Negative) Urine Bilirubin (Negative) Urine Urobilinogen (0.2) mg/dL Ur Leukocyte Esterase (Negative) U Hyaline Cast (Auto) (0-2) /LPF Urine Microscopic RBC (0-5) /HPF Urine Microscopic WBC (0-5) /HPF Ur Epithelial Cells (None Seen) /HPF Urine Bacteria (None Seen) /HPF Urine HCG, Qual NEGATIVE (NEGATIVE) Rh Factor 03/09/25 03/09/25 03/09/25 Range/Units 09:48 13:11 18:18 WBC 13.2 H (3.98-10.04) x10^3/uL RBC 4.38 (3.93-5.22) x10^6/uL Hgb 11.4 (11.2-15.7) g/dL Hct 35.5 (34.1-44.9) % MCV 81.1 (79.4-94.8) fL MCH 26.0 (25.6-32.2) pg MCHC 32.1 L (32.2-35.5) g/dL RDW 13.7 (11.7-14.4) % Plt Count 281 (182-369) x10^3/uL MPV 10.0 (9.4-12.3) fL Gran % (34.0-71.1) % Immature Gran % (Auto) (0.001-0.429) % Nucleat RBC Rel Count (0.00-0.2) % Eos # (Auto) (0.04-0.36) x10^3/uL Immature Gran # (Auto) (0.001-0.031) x10^3u/L Absolute Lymphs (auto) (1.18-3.74) x10^3/uL Absolute Monos (auto) (0.24-0.86) x10^3/uL Absolute Nucleated RBC (0.00-0.012) x10^3u/L Lymphocytes % (19.3-51.7) % Monocytes % (4.7-12.5) % Eosinophils % (0.7-5.8) % Basophils % (0.1-1.2) % Absolute Granulocytes (1.56-6.13) x10^3/uL Basophils # (0.01-0.08) x10^3/uL Sodium (135-145) mmol/L Potassium (3.5-5.1) mmol/L Chloride (98-107) mmol/L Carbon Dioxide (22-30) mmol/L Anion Gap (5-15) MEQ/L BUN (7-17) mg/dL Creatinine (0.52-1.04) mg/dL Estimated GFR ML/MIN Glucose (74-106) mg/dL Calcium (8.4-10.2) mg/dL Total Bilirubin (0.2-1.3) mg/dL AST (14-36) U/L ALT (0-35) U/L Alkaline Phosphatase (38-126) U/L Serum Total Protein (6.3-8.2) g/dL Albumin (3.5-5.0) g/dL Urine Color Yellow (Yellow) Urine Appearance Clear (Clear) Urine pH 6.0 (4.6-8.0) Ur Specific [place] 1.010 (1.005-1.030) Urine Protein Negative (Negative) Urine Glucose (UA) Negative (Negative) mg/dL Urine Ketones Negative (Negative) Urine Blood Negative (Negative) Urine Nitrite Negative (Negative) Urine Bilirubin Negative (Negative) Urine Urobilinogen 0.2 (0.2) mg/dL Ur Leukocyte Esterase Negative (Negative) U Hyaline Cast (Auto) NONE SEEN (0-2) /LPF Urine Microscopic RBC 0-2 (0-5) /HPF Urine Microscopic WBC 0-2 (0-5) /HPF Ur Epithelial Cells None Seen (None Seen) /HPF Urine Bacteria None Seen (None Seen) /HPF Urine HCG, Qual (NEGATIVE) Rh Factor POSITIVE 03/10/25 03/10/25 Range/Units 04:55 04:55 WBC 8.6 (3.98-10.04) x10^3/uL RBC 3.91 L (3.93-5.22) x10^6/uL Hgb 10.2 L (11.2-15.7) g/dL Hct 31.8 L (34.1-44.9) % MCV 81.3 (79.4-94.8) fL MCH 26.1 (25.6-32.2) pg MCHC 32.1 L (32.2-35.5) g/dL RDW 14.0 (11.7-14.4) % Plt Count 273 (182-369) x10^3/uL MPV 10.4 (9.4-12.3) fL Gran % (34.0-71.1) % Immature Gran % (Auto) (0.001-0.429) % Nucleat RBC Rel Count (0.00-0.2) % Eos # (Auto) (0.04-0.36) x10^3/uL Immature Gran # (Auto) (0.001-0.031) x10^3u/L Absolute Lymphs (auto) (1.18-3.74) x10^3/uL Absolute Monos (auto) (0.24-0.86) x10^3/uL Absolute Nucleated RBC (0.00-0.012) x10^3u/L Lymphocytes % (19.3-51.7) % Monocytes % (4.7-12.5) % Eosinophils % (0.7-5.8) % Basophils % (0.1-1.2) % Absolute Granulocytes (1.56-6.13) x10^3/uL Basophils # (0.01-0.08) x10^3/uL Sodium 138 (135-145) mmol/L Potassium 3.8 (3.5-5.1) mmol/L Chloride 105 (98-107) mmol/L Carbon Dioxide 25 (22-30) mmol/L Anion Gap 11.8 (5-15) MEQ/L BUN 9 (7-17) mg/dL Creatinine 0.84 (0.52-1.04) mg/dL Estimated GFR 86.2 ML/MIN Glucose 88 (74-106) mg/dL Calcium 8.0 L (8.4-10.2) mg/dL Total Bilirubin 0.20 (0.2-1.3) mg/dL AST 20 (14-36) U/L ALT 13 (0-35) U/L Alkaline Phosphatase 76 (38-126) U/L Serum Total Protein 5.4 L (6.3-8.2) g/dL Albumin 3.2 L (3.5-5.0) g/dL Urine Color (Yellow) Urine Appearance (Clear) Urine pH (4.6-8.0) Ur Specific [place] (1.005-1.030) Urine Protein (Negative) Urine Glucose (UA) (Negative) mg/dL Urine Ketones (Negative) Urine Blood (Negative) Urine Nitrite (Negative) Urine Bilirubin (Negative) Urine Urobilinogen (0.2) mg/dL Ur Leukocyte Esterase (Negative) U Hyaline Cast (Auto) (0-2) /LPF Urine Microscopic RBC (0-5) /HPF Urine Microscopic WBC (0-5) /HPF Ur Epithelial Cells (None Seen) /HPF Urine Bacteria (None Seen) /HPF Urine HCG, Qual (NEGATIVE) Rh Factor Radiology Exams: Radiology Procedures Category Date Time Status ABDOMEN AND PELVIS W CONTRAST [CT] Stat Exams 03/10/25 07:34 Ordered CHEST WITH CONTRAST [CT] Stat Exams 03/10/25 07:34 Ordered ECHO W/2D AND DOPPLER [US] Routine Exams 03/10/25 07:37 Ordered Medications: Medications Generic Name Dose Route Start Last Admin Trade Name Freq PRN Reason Stop Dose Admin Buspirone HCl 15 mg 03/09/25 22:00 03/09/25 21:17 Buspirone Hcl 5 Mg Tablet PO 04/08/25 21:59 15 mg TID SANDEEP Administration Docusate Sodium 100 mg 03/09/25 22:00 03/09/25 21:17 Docusate Sodium 100 Mg Capsule PO 04/08/25 21:59 100 mg BID SANDEEP Administration Enoxaparin Sodium 40 mg 03/10/25 09:00 Enoxaparin Sodium 40 Mg/0.4 Ml Syringe SQ 04/09/25 08:59 DAILY SANDEEP Lactated Ringer's 1,000 mls @ 125 mls/hr 03/09/25 14:30 03/10/25 04:25 Lactated Ringers IV 04/08/25 14:29 125 mls/hr .Q8H SANDEEP Administration Piperacillin Sod/Tazobactam 100 mls @ 200 mls/hr 03/10/25 12:00 Sod 3.375 gm/ Sodium Chloride IV 03/13/25 11:59 Q6HT SANDEEP Ketorolac Tromethamine 30 mg 03/09/25 14:20 03/10/25 00:26 Ketorolac Tromethamine 30 Mg/Ml Inj IV 03/14/25 14:19 30 mg Q6H PRN PRN Administration BREAKTHRU PAIN Ketorolac Tromethamine 10 mg 03/09/25 16:03 Ketorolac Tromethamine 10 Mg Tablet PO 03/14/25 16:02 Q8HPRN PRN PAIN Lamotrigine 200 mg 03/09/25 22:00 03/09/25 21:17 Lamotrigine 100 Mg Tab PO 04/08/25 21:59 200 mg BID SANDEEP Administration Metoclopramide HCl 10 mg 03/09/25 15:00 03/10/25 06:21 Metoclopramide Hcl 10 Mg/2 Ml Vial IV 04/08/25 14:59 10 mg Q8HT SANDEEP Administration Miscellaneous Information 1 each 03/09/25 16:30 Medication Intervention 1 Each Each 04/08/25 16:29 .RN TO CHECK SANDEEP Morphine Sulfate 2 mg 03/09/25 16:04 Morphine Sulfate 2 Mg/Ml Inj IV 03/14/25 16:03 Q4H PRN PRN PAIN Morphine Sulfate 3 mg 03/09/25 16:10 Morphine Sulfate 4 Mg/Ml Injection IV 03/14/25 16:09 Q4H PRN PRN MODERATE PAIN Morphine Sulfate 4 mg 03/09/25 16:08 Morphine Sulfate 4 Mg/Ml Injection IV 03/14/25 16:07 Q4H PRN PRN SEVERE PAIN Naloxone HCl 0.2 - 0.4 mg 03/09/25 14:30 Naloxone Hcl 0.4 Mg/Ml Ml IV 04/08/25 14:29 PRN PRN RESP. DEPRESSION / DLOC Nicotine 14 mg 03/09/25 17:00 03/09/25 17:09 Nicotine 14 Mg/Patch Patch TOP 04/08/25 16:59 14 mg Q24H10 SANDEEP Administration Ondansetron HCl 4 mg 03/09/25 14:27 Ondansetron Hcl 4 Mg/2 Ml Vial IV 04/08/25 14:26 Q6H PRN PRN NAUSEA/VOMITING Simethicone 80 mg 03/09/25 15:00 03/10/25 06:21 Simethicone 80 Mg Tab.Chew PO 04/08/25 14:59 80 mg Q8HT SANDEEP Administration Discontinued Medications Generic Name Dose Route Start Last Admin Trade Name Freq PRN Reason Stop Dose Admin Celecoxib 200 mg 03/09/25 08:34 03/09/25 08:56 Celecoxib 100 Mg Capsule PO 03/09/25 08:35 200 mg 2HRPRIOR ONE Administration Celecoxib Confirm 03/09/25 08:53 Celecoxib 100 Mg Capsule Administered 03/09/25 08:54 Dose 200 mg .ROUTE .STK-MED ONE Fentanyl Citrate Confirm 03/09/25 11:40 Fentanyl Citrate 100 Mcg/2 Ml* Vial Administered 03/09/25 11:41 Dose 100 mcg .ROUTE .STK-MED ONE Fentanyl Citrate Confirm 03/09/25 14:34 Fentanyl Citrate 100 Mcg/2 Ml* Vial Administered 03/09/25 14:35 Dose 100 mcg .ROUTE .STK-MED ONE Gabapentin 600 mg 03/09/25 08:34 03/09/25 08:56 Gabapentin 300 Mg Capsule PO 03/09/25 08:35 600 mg 2HRPRIOR ONE Administration Gabapentin Confirm 03/09/25 08:53 Gabapentin 300 Mg Capsule Administered 03/09/25 08:54 Dose 600 mg .ROUTE .STK-MED ONE Glycopyrrolate Confirm 03/09/25 13:55 Glycopyrrolate 0.2 Mg/1ml Sdv Administered 03/09/25 13:56 Dose 0.4 mg .ROUTE .STK-MED ONE Hydromorphone/Sodium Chloride 0 mg 03/09/25 14:30 Hydromorphone/Nacl/Pf 30 Mg/30 Ml Housekeeper/Laundry Assistant.Syring IV 04/08/25 14:29 .STANDARD PACE DOSING PRN Lactated Ringer's 1,000 mls @ 50 mls/hr 03/09/25 09:00 03/09/25 08:56 Lactated Ringers IV 04/08/25 08:59 50 mls/hr .Q20H SANDEEP Administration Lactated Ringer's Confirm 03/09/25 08:53 Lactated Ringers Administered 03/09/25 08:54 Dose 1,000 mls @ ud IV .STK-MED ONE Lactated Ringer's Confirm 03/09/25 13:57 Lactated Ringers Administered 03/09/25 13:58 Dose 1,000 mls @ ud IV .STK-MED ONE Cefazolin Sodium 2 gm in 100 mls @ 200 mls/hr 03/09/25 16:00 03/10/25 00:26 Cefazolin 2 Gm/100 Ml Nacl IV 03/10/25 00:29 200 mls/hr Q8H SANDEEP Administration Lactated Ringer's Confirm 03/09/25 15:11 Lactated Ringers Administered 03/09/25 15:12 Dose 1,000 mls @ ud IV .STK-MED ONE Ketorolac Tromethamine Confirm 03/09/25 13:57 Ketorolac Tromethamine 30 Mg/Ml Inj Administered 03/09/25 13:58 Dose 30 mg .ROUTE .STK-MED ONE Lidocaine HCl Confirm 03/09/25 13:32 Lidocaine - Mpf 2% 5 Ml Vial Administered 03/09/25 13:33 Dose 5 ml .ROUTE .STK-MED ONE Midazolam HCl Confirm 03/09/25 11:40 Midazolam Hcl 2 Mg/2 Ml Vial Administered 03/09/25 11:41 Dose 2 mg .ROUTE .STK-MED ONE Non-Formulary Medication 1 each 03/09/25 17:00 03/09/25 18:05 Non-Formulary Drug 1 Each Each PO 04/08/25 16:59 1 each 1700 SANDEEP Administration Ondansetron HCl Confirm 03/09/25 13:57 Ondansetron Hcl 4 Mg/2 Ml Vial Administered 03/09/25 13:58 Dose 4 mg .ROUTE .STK-MED ONE Propofol Confirm 03/09/25 11:40 Propofol 200 Mg/20 Ml Vial Administered 03/09/25 11:41 Dose 200 mg IV .STK-MED ONE Rocuronium [place] Confirm 03/09/25 11:40 Rocuronium [place] 50 Mg/5 Ml Vial Administered 03/09/25 11:41 Dose 50 mg IV .STK-MED ONE Ropivacaine Confirm 03/09/25 14:04 Ropivacaine Hcl 5 Mg/Ml 30ml Vial Administered 03/09/25 14:05 Dose 150 mg .ROUTE .STK-MED ONE Scopolamine HBr 1.5 mg 03/09/25 08:34 03/09/25 08:56 Scopolamine 1.5 Mg Patch TOP 03/09/25 08:35 1.5 mg STAT ONE Administration Scopolamine HBr Confirm 03/09/25 08:53 Scopolamine 1.5 Mg Patch Administered 03/09/25 08:54 Dose 1.5 mg .ROUTE .STK-MED ONE Sugammadex Sodium Confirm 03/09/25 13:57 Sugammadex Sodium 200 Mg/2 Ml Vial Administered 03/09/25 13:58 Dose 200 mg IV .STK-MED ONE Assessment/Plan (1) S/P total abdominal hysterectomy Current Visit: Yes Status: Acute Code(s): Z90.710 - ACQUIRED ABSENCE OF BOTH CERVIX AND UTERUS (2) Hypotension after procedure Current Visit: Yes Status: Acute Code(s): I95.81 - POSTPROCEDURAL HYPOTENSION (3) Bradycardia Current Visit: Yes Status: Acute Code(s): R00.1 - BRADYCARDIA, UNSPECIFIED
[2025-03-10] MEDS: ENOXAPARIN SODIUM SQ SCH (08:46)
[2025-03-10] MEDS: Sodium Chloride 0.9% 1000 ML 1,000 ML IV STA (08:48)
[2025-03-10] MEDS ORDERED: LURASIDONE HCL 20 MG PO SCH (10:00)
--- NOTE | 2025-03-10 10:10 | XRAY ---
Indication: Postop pain. Status post hysterectomy 1 day earlier. Multiple contiguous axial images obtained through the abdomen and pelvis without contrast as ordered. Comparison: January 08, 2020 Lung bases demonstrates minimal left basilar atelectasis. No infiltrate or effusion. Heart not enlarged. Noncontrasted stomach and bowel loops appear nonobstructed with normal appendix. Interval remote cholecystectomy. New nonobstructing right lower renal punctate calculus. Uterus now surgically absent with postoperative tiny free fluid and tiny scattered abdominal/pelvic free air. Lower abdominal wall also demonstrates postoperative soft tissue swelling/induration and soft tissue emphysema. No focal walled off fluid collection/abscess on this noncontrast exam. Normally distended urinary bladder now demonstrates a few tiny intraluminal air bubbles either iatrogenic from recent catheterization versus gas-forming bacterial infection. Remaining liver, pancreas, spleen, adrenal glands, kidneys, ureters, and aorta are unremarkable for noncontrast exam. Osseous structures intact. Impression: 1. Status post hysterectomy with normal expected postoperative tiny free fluid, tiny abdominal/pelvic free air, and overlying abdominal wall postoperative changes. 2. New urinary bladder intraluminal air bubbles either iatrogenic versus gas-forming infection. 3. New nonobstructing right renal punctate calculus.
[2025-03-10] MEDS: ROCEPHIN 1 GM / 100 ML NaCl 1 GM/100 ML IVPB IV SCH (10:20)
--- NOTE | 2025-03-10 11:25 | PCM.NOTE ---
Date and Time: 03/10/25 1118 Subjective Assessment: Ms. Covarrubias is a 49-year-old female with a past medical history of bipolar disorder who is status-post total abdominal hysterectomy with bilateral salpingectomy on 03/09/25 for a gynecologic indication. She developed new-onset hypotension overnight with systolic blood pressures in the 80s and diastolic pressures in the 40s, persisting despite initial fluid resuscitation. Hospitalist service was consulted for evaluation and management. The patient denies any associated symptoms including dizziness, chest pain, dyspnea, or visual disturbances. She remains hemodynamically stable from a symptom perspective and reports only moderate incisional pain. No evidence of ongoing bleeding was identified. Given normal lactic acid, absence of bleeding on imaging, and preserved mentation, the etiology is likely multifactorialcombination of relative intravascular depletion and postoperative vasodilation. Normocytic anemia likely reflects perioperative blood loss rather than ongoing hemorrhage. - Review of Systems Constitutional: No Symptoms Eyes: No Symptoms Ears, Nose, & Throat: No Symptoms Respiratory: No Symptoms Cardiac: No Symptoms Abdominal/Gastrointestinal: Abdominal Pain (at surgical site) Genitourinary Symptoms: No Symptoms Musculoskeletal: No Symptoms Skin: Other (surgical incision with dressing - CDI) Neurological: No Symptoms Psychological: No Symptoms Endocrine: No Symptoms Hematologic/Lymphatic: Anemia Immunological/Allergic: No Symptoms Objective Exam General Appearance: no apparent distress Neurologic Exam: alert, oriented x 3, cooperative Skin Exam: normal color, other (surgical wound to abdomen- with dressing CDI) Eye Exam: PERRL Ears, Nose, Throat Exam: normal ENT inspection Neck Exam: normal inspection Respiratory Exam: normal breath sounds, lungs clear Cardiovascular Exam: regular rate/rhythm, normal heart sounds Gastrointestinal/Abdomen Exam: soft, normal bowel sounds Extremity Exam: normal inspection Back Exam: normal inspection Pelvic Exam: deferred Rectal Exam: deferred Objective Data Vital Signs: Vital Signs - 24 hr Temp Pulse Resp BP Pulse Ox 03/10/25 11:10 98.2 F 55 L 16 89/51 95 03/10/25 09:30 85/58 03/10/25 07:13 98.0 F 60 16 87/43 93 L 03/10/25 03:44 97.7 F 48 L 17 84/48 94 L 03/09/25 23:42 69 F 48 L 17 84/50 94 L 03/09/25 20:00 99.4 F 48 L 15 99/73 98 03/09/25 18:00 98.0 F 49 L 18 94/61 99 03/09/25 17:00 97.9 F 60 18 110/55 100 03/09/25 16:35 97.9 F 48 L 16 97/53 100 03/09/25 16:20 99.5 F 45 L 16 109/57 100 03/09/25 15:45 49 L 16 98/59 98 03/09/25 15:30 97.9 F 109 H 16 97/53 94 L 03/09/25 15:20 98.7 F 49 L 16 102/57 100 Pain Assessment - Last Documented Pain Intensity [Anterior] 4 Pain Intensity 5 [facility] Intake and Output: Intake & Output 03/07/25 03/08/25 03/09/25 03/10/25 11:59 11:59 11:59 11:59 Intake Total 2538 Output Total 1850 Balance 688 Weight 89.9 kg 89.3 kg Lab Results: Lab Results-Last 24 Hours 03/09/25 03/09/25 03/10/25 Range/Units 13:11 18:18 04:55 WBC 13.2 H 8.6 (3.98-10.04) x10^3/uL RBC 4.38 3.91 L (3.93-5.22) x10^6/uL Hgb 11.4 10.2 L (11.2-15.7) g/dL Hct 35.5 31.8 L (34.1-44.9) % MCV 81.1 81.3 (79.4-94.8) fL MCH 26.0 26.1 (25.6-32.2) pg MCHC 32.1 L 32.1 L (32.2-35.5) g/dL RDW 13.7 14.0 (11.7-14.4) % Plt Count 281 273 (182-369) x10^3/uL MPV 10.0 10.4 (9.4-12.3) fL Sodium (135-145) mmol/L Potassium (3.5-5.1) mmol/L Chloride (98-107) mmol/L Carbon Dioxide (22-30) mmol/L Anion Gap (5-15) MEQ/L BUN (7-17) mg/dL Creatinine (0.52-1.04) mg/dL Estimated GFR ML/MIN Glucose (74-106) mg/dL Lactic Acid (0.4-2.0) Calcium (8.4-10.2) mg/dL Total Bilirubin (0.2-1.3) mg/dL AST (14-36) U/L ALT (0-35) U/L Alkaline Phosphatase (38-126) U/L Troponin I (0.000-0.033) ng/mL Serum Total Protein (6.3-8.2) g/dL Albumin (3.5-5.0) g/dL Urine Color Yellow (Yellow) Urine Appearance Clear (Clear) Urine pH 6.0 (4.6-8.0) Ur Specific [place] 1.010 (1.005-1.030) Urine Protein Negative (Negative) Urine Glucose (UA) Negative (Negative) mg/dL Urine Ketones Negative (Negative) Urine Blood Negative (Negative) Urine Nitrite Negative (Negative) Urine Bilirubin Negative (Negative) Urine Urobilinogen 0.2 (0.2) mg/dL Ur Leukocyte Esterase Negative (Negative) U Hyaline Cast (Auto) NONE SEEN (0-2) /LPF Urine Microscopic RBC 0-2 (0-5) /HPF Urine Microscopic WBC 0-2 (0-5) /HPF Ur Epithelial Cells None Seen (None Seen) /HPF Urine Bacteria None Seen (None Seen) /HPF 03/10/25 03/10/25 03/10/25 Range/Units 04:55 07:34 07:46 WBC (3.98-10.04) x10^3/uL RBC (3.93-5.22) x10^6/uL Hgb (11.2-15.7) g/dL Hct (34.1-44.9) % MCV (79.4-94.8) fL MCH (25.6-32.2) pg MCHC (32.2-35.5) g/dL RDW (11.7-14.4) % Plt Count (182-369) x10^3/uL MPV (9.4-12.3) fL Sodium 138 (135-145) mmol/L Potassium 3.8 (3.5-5.1) mmol/L Chloride 105 (98-107) mmol/L Carbon Dioxide 25 (22-30) mmol/L Anion Gap 11.8 (5-15) MEQ/L BUN 9 (7-17) mg/dL Creatinine 0.84 (0.52-1.04) mg/dL Estimated GFR 86.2 ML/MIN Glucose 88 (74-106) mg/dL Lactic Acid 0.6 (0.4-2.0) Calcium 8.0 L (8.4-10.2) mg/dL Total Bilirubin 0.20 (0.2-1.3) mg/dL AST 20 (14-36) U/L ALT 13 (0-35) U/L Alkaline Phosphatase 76 (38-126) U/L Troponin I < 0.012 (0.000-0.033) ng/mL Serum Total Protein 5.4 L (6.3-8.2) g/dL Albumin 3.2 L (3.5-5.0) g/dL Urine Color (Yellow) Urine Appearance (Clear) Urine pH (4.6-8.0) Ur Specific [place] (1.005-1.030) Urine Protein (Negative) Urine Glucose (UA) (Negative) mg/dL Urine Ketones (Negative) Urine Blood (Negative) Urine Nitrite (Negative) Urine Bilirubin (Negative) Urine Urobilinogen (0.2) mg/dL Ur Leukocyte Esterase (Negative) U Hyaline Cast (Auto) (0-2) /LPF Urine Microscopic RBC (0-5) /HPF Urine Microscopic WBC (0-5) /HPF Ur Epithelial Cells (None Seen) /HPF Urine Bacteria (None Seen) /HPF Radiology Exams: Radiology Procedures Category Date Time Status ABDOMEN AND PELVIS W/0 CONTRAS [CT] Stat Exams 03/10/25 09:09 Completed ECHO W/2D AND DOPPLER [US] Routine Exams 03/10/25 07:37 Ordered Medications: Medications Generic Name Dose Route Start Last Admin Trade Name Freq PRN Reason Stop Dose Admin Buspirone HCl 15 mg 03/09/25 22:00 03/10/25 09:24 Buspirone Hcl 5 Mg Tablet PO 04/08/25 21:59 15 mg TID SANDEEP Administration Docusate Sodium 100 mg 03/09/25 22:00 03/10/25 09:23 Docusate Sodium 100 Mg Capsule PO 04/08/25 21:59 100 mg BID SANDEEP Administration Enoxaparin Sodium 40 mg 03/10/25 09:00 03/10/25 08:46 Enoxaparin Sodium 40 Mg/0.4 Ml Syringe SQ 04/09/25 08:59 40 mg DAILY SANDEEP Administration Lactated Ringer's 1,000 mls @ 125 mls/hr 03/09/25 14:30 03/10/25 11:08 Lactated Ringers IV 04/08/25 14:29 125 mls/hr .Q8H SANDEEP Administration Ceftriaxone Sodium 1 gm in 100 mls @ 200 mls/hr 03/10/25 10:00 03/10/25 10:20 Rocephin 1 Gm / 100 Ml Nacl IV 04/09/25 09:59 200 mls/hr Q24H10 SANDEEP Administration Ketorolac Tromethamine 30 mg 03/09/25 14:20 03/10/25 00:26 Ketorolac Tromethamine 30 Mg/Ml Inj IV 03/14/25 14:19 30 mg Q6H PRN PRN Administration BREAKTHRU PAIN Ketorolac Tromethamine 10 mg 03/09/25 16:03 Ketorolac Tromethamine 10 Mg Tablet PO 03/14/25 16:02 Q8HPRN PRN PAIN Lamotrigine 200 mg 03/09/25 22:00 03/10/25 09:23 Lamotrigine 100 Mg Tab PO 04/08/25 21:59 200 mg BID SANDEEP Administration Metoclopramide HCl 10 mg 03/09/25 15:00 03/10/25 06:21 Metoclopramide Hcl 10 Mg/2 Ml Vial IV 04/08/25 14:59 10 mg Q8HT SANDEEP Administration Miscellaneous Information 1 each 03/09/25 16:30 Medication Intervention 1 Each Each 04/08/25 16:29 .RN TO CHECK SANDEEP Morphine Sulfate 2 mg 03/09/25 16:04 Morphine Sulfate 2 Mg/Ml Inj IV 03/14/25 16:03 Q4H PRN PRN PAIN Morphine Sulfate 3 mg 03/09/25 16:10 Morphine Sulfate 4 Mg/Ml Injection IV 03/14/25 16:09 Q4H PRN PRN MODERATE PAIN Morphine Sulfate 4 mg 03/09/25 16:08 Morphine Sulfate 4 Mg/Ml Injection IV 03/14/25 16:07 Q4H PRN PRN SEVERE PAIN Naloxone HCl 0.2 - 0.4 mg 03/09/25 14:30 Naloxone Hcl 0.4 Mg/Ml Ml IV 04/08/25 14:29 PRN PRN RESP. DEPRESSION / DLOC Nicotine 14 mg 03/09/25 17:00 03/10/25 09:26 Nicotine 14 Mg/Patch Patch TOP 04/08/25 16:59 14 mg Q24H10 SANDEEP Administration Ondansetron HCl 4 mg 03/09/25 14:27 Ondansetron Hcl 4 Mg/2 Ml Vial IV 04/08/25 14:26 Q6H PRN PRN NAUSEA/VOMITING Simethicone 80 mg 03/09/25 15:00 03/10/25 06:21 Simethicone 80 Mg Tab.Chew PO 04/08/25 14:59 80 mg Q8HT SANDEEP Administration Discontinued Medications Generic Name Dose Route Start Last Admin Trade Name Freq PRN Reason Stop Dose Admin Celecoxib 200 mg 03/09/25 08:34 03/09/25 08:56 Celecoxib 100 Mg Capsule PO 03/09/25 08:35 200 mg 2HRPRIOR ONE Administration Celecoxib Confirm 03/09/25 08:53 Celecoxib 100 Mg Capsule Administered 03/09/25 08:54 Dose 200 mg .ROUTE .STK-MED ONE Fentanyl Citrate Confirm 03/09/25 11:40 Fentanyl Citrate 100 Mcg/2 Ml* Vial Administered 03/09/25 11:41 Dose 100 mcg .ROUTE .STK-MED ONE Fentanyl Citrate Confirm 03/09/25 14:34 Fentanyl Citrate 100 Mcg/2 Ml* Vial Administered 03/09/25 14:35 Dose 100 mcg .ROUTE .STK-MED ONE Gabapentin 600 mg 03/09/25 08:34 03/09/25 08:56 Gabapentin 300 Mg Capsule PO 03/09/25 08:35 600 mg 2HRPRIOR ONE Administration Gabapentin Confirm 03/09/25 08:53 Gabapentin 300 Mg Capsule Administered 03/09/25 08:54 Dose 600 mg .ROUTE .STK-MED ONE Glycopyrrolate Confirm 03/09/25 13:55 Glycopyrrolate 0.2 Mg/1ml Sdv Administered 03/09/25 13:56 Dose 0.4 mg .ROUTE .STK-MED ONE Hydromorphone/Sodium Chloride 0 mg 03/09/25 14:30 Hydromorphone/Nacl/Pf 30 Mg/30 Ml Shoe Singer.Syring IV 04/08/25 14:29 .STANDARD PACE DOSING PRN Lactated Ringer's 1,000 mls @ 50 mls/hr 03/09/25 09:00 03/09/25 08:56 Lactated Ringers IV 04/08/25 08:59 50 mls/hr .Q20H SANDEEP Administration Lactated Ringer's Confirm 03/09/25 08:53 Lactated Ringers Administered 03/09/25 08:54 Dose 1,000 mls @ ud IV .STK-MED ONE Lactated Ringer's Confirm 03/09/25 13:57 Lactated Ringers Administered 03/09/25 13:58 Dose 1,000 mls @ ud IV .STK-MED ONE Cefazolin Sodium 2 gm in 100 mls @ 200 mls/hr 03/09/25 16:00 03/10/25 00:26 Cefazolin 2 Gm/100 Ml Nacl IV 03/10/25 00:29 200 mls/hr Q8H SANDEEP Administration Lactated Ringer's Confirm 03/09/25 15:11 Lactated Ringers Administered 03/09/25 15:12 Dose 1,000 mls @ ud IV .STK-MED ONE Sodium Chloride 1,000 mls @ 999 mls/hr 03/10/25 07:39 03/10/25 08:48 Sodium Chloride 0.9% 1000 Ml IV 03/10/25 08:39 999 mls/hr .Q1H1M STA Administration Ketorolac Tromethamine Confirm 03/09/25 13:57 Ketorolac Tromethamine 30 Mg/Ml Inj Administered 03/09/25 13:58 Dose 30 mg .ROUTE .STK-MED ONE Lidocaine HCl Confirm 03/09/25 13:32 Lidocaine - Mpf 2% 5 Ml Vial Administered 03/09/25 13:33 Dose 5 ml .ROUTE .STK-MED ONE Midazolam HCl Confirm 03/09/25 11:40 Midazolam Hcl 2 Mg/2 Ml Vial Administered 03/09/25 11:41 Dose 2 mg .ROUTE .STK-MED ONE Non-Formulary Medication 1 each 03/09/25 17:00 03/09/25 18:05 Non-Formulary Drug 1 Each Each PO 04/08/25 16:59 1 each 1700 SANDEEP Administration Ondansetron HCl Confirm 03/09/25 13:57 Ondansetron Hcl 4 Mg/2 Ml Vial Administered 03/09/25 13:58 Dose 4 mg .ROUTE .STK-MED ONE Propofol Confirm 03/09/25 11:40 Propofol 200 Mg/20 Ml Vial Administered 03/09/25 11:41 Dose 200 mg IV .STK-MED ONE Rocuronium [place] Confirm 03/09/25 11:40 Rocuronium [place] 50 Mg/5 Ml Vial Administered 03/09/25 11:41 Dose 50 mg IV .STK-MED ONE Ropivacaine Confirm 03/09/25 14:04 Ropivacaine Hcl 5 Mg/Ml 30ml Vial Administered 03/09/25 14:05 Dose 150 mg .ROUTE .STK-MED ONE Scopolamine HBr 1.5 mg 03/09/25 08:34 03/09/25 08:56 Scopolamine 1.5 Mg Patch TOP 03/09/25 08:35 1.5 mg STAT ONE Administration Scopolamine HBr Confirm 03/09/25 08:53 Scopolamine 1.5 Mg Patch Administered 03/09/25 08:54 Dose 1.5 mg .ROUTE .STK-MED ONE Sugammadex Sodium Confirm 03/09/25 13:57 Sugammadex Sodium 200 Mg/2 Ml Vial Administered 03/09/25 13:58 Dose 200 mg IV .STK-MED ONE Assessment/Plan (1) Hypotension after procedure Current Visit: Yes Status: Acute Assessment & Plan: -Likely multifactorial: relative hypovolemia, anesthetic-related vasodilation, possible vagal tone influence - No signs of ongoing hemorrhage or sepsis -CMP/cbc reviewed - hgb stable at 10.2 -Continue IV fluid boluses ([id number] mL NS or LR) as needed to maintain MAP > 65 -Monitor vitals q1h while hypotensive -Trend H/H q68h to ensure stability -Monitor urine output Code(s): I95.81 - POSTPROCEDURAL HYPOTENSION (2) Bradycardia Current Visit: Yes Status: Acute Assessment & Plan: -HR in 50s without symptoms (dizziness, syncope, altered mentation)- Possibly vagally mediated or anesthetic residual -No medications known to cause bradycardia per current chart -patient states she did experience a bradycardic episode after GB surgery -Continue to monitor on tele -IVF - Check TSH -CMP reviewed - no electrolyte abnormalities Code(s): R00.1 - BRADYCARDIA, UNSPECIFIED (3) S/P total abdominal hysterectomy Current Visit: Yes Status: Acute Assessment & Plan: -Dr. Sellers following - no signs of infection at incision site -Pain control per business development analyst -avoid sedating pain meds Code(s): Z90.710 - ACQUIRED ABSENCE OF BOTH CERVIX AND UTERUS (4) Normocytic anemia due to blood loss Current Visit: Yes Status: Acute Assessment & Plan: -Likely expected post-surgical blood loss; no imaging evidence on CT abd/pelvis of hemorrhage; hemodynamically stable -continue to monitor H&H Code(s): D50.0 - IRON DEFICIENCY ANEMIA SECONDARY TO BLOOD LOSS (CHRONIC) (5) Bipolar 1 disorder Current Visit: Yes Status: Acute Assessment & Plan: -continue home meds Code(s): F31.9 - BIPOLAR DISORDER, UNSPECIFIED
[2025-03-10] MEDS ORDERED: PIPERACILLIN/TAZOBACTAM 3.375 GM in Sodium Chloride 100ML MINI-BAG PLUS 100 ML IV SCH (12:00)
[2025-03-10 12:04] LABS: Hematocrit 31.9 % (34.1-44.9); Hemoglobin 10.1 g/dL (11.2-15.7)
[2025-03-10] MEDS: PATIENT OWN MEDICATION PO SCH (18:47)
[2025-03-11 05:15] LABS: Absolute Neutrophil Ct (ANC) 5.39 x10^3/uL (1.56-6.13); BASOPHIL % 0.3 % (0.1-1.2); Basophil (Absolute #) 0.02 x10^3/uL (0.01-0.08); Eosinophil % 4.2 % (0.7-5.8); Eosinophil (Absolute #) 0.33 x10^3/uL (0.04-0.36); Hemoglobin 9.6 g/dL (11.2-15.7); IMMATURE GRAN # 0.03 x10^3u/L (0.001-0.031); IMMATURE GRAN % 0.4 % (0.001-0.429); Lymphocyte (Absolute #) 1.48 x10^3/uL (1.18-3.74); Lymphocytes % 18.6 % (19.3-51.7); Mean Cell Volume 81.3 fL (79.4-94.8); Mean Platelet Volume 10.3 fL (9.4-12.3); Monocyte (Absolute #) 0.69 x10^3/uL (0.24-0.86); Monocytes % 8.7 % (4.7-12.5); Neutrophil % 67.8 % (34.0-71.1); Platelet Count 229 x10^3/uL (182-369); Red Blood Count 3.69 x10^6/uL (3.93-5.22); White Blood Count 7.9 x10^3/uL (3.98-10.04)
--- NOTE | 2025-03-11 05:17 | PCM.CONS ---
<AURORA BLOCK - Last Filed: 03/11/25 05:13> History of Present Illness - Reason for Consult Chief Complaint: Hysterectomy Date of Consultation Date: 03/10/25 Reason for Consult: Hypotension Requesting Provider: PARRIS SELLERS DO Consulting Provider: AURORA BLOCK NP History of Present Illness: is a 49 year old female. - Review of Systems Constitutional: No Symptoms Eyes: No Symptoms Ears, Nose, & Throat: No Symptoms Respiratory: No Symptoms Cardiac: No Symptoms Abdominal/Gastrointestinal: Abdominal Pain Genitourinary Symptoms: No Symptoms Musculoskeletal: No Symptoms Skin: Other (abdominal surgical incision CDI) Neurological: Dizziness Psychological: No Symptoms Endocrine: No Symptoms Hematologic/Lymphatic: No Symptoms Immunological/Allergic: No Symptoms Medications & Allergies Home Medications: Home Medication List Buspirone HCl 15 mg PO TID 02/09/25 [History Confirmed 03/09/25] lamoTRIgine [Lamictal] 200 mg PO BID 02/09/25 [History Confirmed 03/09/25] Lurasidone HCl [Latuda] 20 mg PO 1700 03/09/25 [History Confirmed 03/09/25] Oxycodone HCl/Acetaminophen [Percocet 5-325 mg Tablet] 1 each PO Q6H PRN PRN #20 tablet MDD 4 03/11/25 [Rx] Allergies/Adverse Reactions: Allergies Allergy/AdvReac Type Severity Reaction Status Date / Time Iodinated Contrast Media Allergy Severe Tightness Verified 01/09/20 01:02 [Iodinated Contrast- Oral of Throat and IV Dye] metronidazole [From Flagyl] Allergy Severe Tightness Verified 01/09/20 01:02 of Throat clindamycin Allergy Intermediate Hives Verified 01/09/20 01:02 erythromycin base Allergy Intermediate Hives Verified 01/09/20 01:02 Penicillins Allergy Mild Hives Verified 01/09/20 01:02 - Past Medical History Past Medical History: Yes Neurological History: No Pertinent History ENT History: No Pertinent History Cardiac History: Other Respiratory History: No Pertinent History Endocrine Medical History: No Pertinent History Musculoskelatal History: No Pertinent History GI Medical History: No Pertinent History, Gallbladder Disease History: No Pertinent History Pyscho-Social History: Anxiety, Bipolar, Depression Reproductive Disorders: Abnormal Uterine Bleeding, Fibroids Comment: Bradycardia - Female History Are you now?: No - Past Surgical History Past Surgical History: Yes Neuro Surgical History: No Pertinent History Cardiac History: No Pertinent History Respiratory Surgery: No Pertinent History GI Surgical History: Cholecystectomy Genitourinary Surgical Hx: No Pertinent History Musculskeletal Surgical Hx: Other Female Surgical History: Hysterectomy, Tubal Ligation Other Surgical History: Both wrist surgery 2013. Tubal 2003. hysterectomy 03/09/2025 - Social History Smoking Status: Former smoker How long have you smoked: 20+ Exposure to second hand smoke: No Alcohol: None Drug Use: none - Social Determinants of Health Will the patient participate in the screening: Yes Do you worry about a steady place to live?: No Do you have any problems with any of the following?: No known problems In the past 12 months,have you had to go without utilities?: No Have you or anyone in your house had to go without enough: No Transportation Issues: No Has anyone in your support network made you feel unsafe?: No Does the patient want assistance with any of the above?: No - Physical Exam Vital Signs: Vital Signs - 24 hr Temp Pulse Resp BP Pulse Ox 03/11/25 04:00 19 139/60 03/11/25 03:00 112/68 03/11/25 02:00 111/54 03/11/25 01:00 117/60 03/11/25 00:00 122/61 03/10/25 23:00 116/56 03/10/25 22:00 101/52 03/10/25 21:00 84/44 03/10/25 20:00 100.0 F 74 19 99/60 98 03/10/25 15:51 97.7 F 80 16 89/53 95 03/10/25 13:00 55 L 16 100/52 97 03/10/25 12:00 98.2 F 55 L 16 89/51 95 03/10/25 11:10 98.2 F 55 L 16 89/51 95 03/10/25 09:30 85/58 03/10/25 07:13 98.0 F 60 16 87/43 93 L General Appearance: no apparent distress Neurologic Exam: alert, oriented x 3, cooperative Eye Exam: PERRL/EOMI Ears, Nose, Throat Exam: normal ENT inspection, TM abnormal (L) Respiratory Exam: normal breath sounds, lungs clear Cardiovascular Exam: normal heart sounds, bradycardia Gastrointestinal/Abdomen Exam: soft, normal bowel sounds Pelvic Exam: not done Rectal Exam: deferred Back Exam: normal inspection Extremity Exam: normal inspection Skin Exam: other (abdominal surgical incision CDI) Results - Labs Lab/Micro Results: Lab Results-Last 24 Hours 03/10/25 03/10/25 03/10/25 Range/Units 04:55 04:55 07:34 WBC 8.6 (3.98-10.04) x10^3/uL RBC 3.91 L (3.93-5.22) x10^6/uL Hgb 10.2 L (11.2-15.7) g/dL Hct 31.8 L (34.1-44.9) % MCV 81.3 (79.4-94.8) fL MCH 26.1 (25.6-32.2) pg MCHC 32.1 L (32.2-35.5) g/dL RDW 14.0 (11.7-14.4) % Plt Count 273 (182-369) x10^3/uL MPV 10.4 (9.4-12.3) fL Sodium 138 (135-145) mmol/L Potassium 3.8 (3.5-5.1) mmol/L Chloride 105 (98-107) mmol/L Carbon Dioxide 25 (22-30) mmol/L Anion Gap 11.8 (5-15) MEQ/L BUN 9 (7-17) mg/dL Creatinine 0.84 (0.52-1.04) mg/dL Estimated GFR 86.2 ML/MIN Glucose 88 (74-106) mg/dL Lactic Acid 0.6 (0.4-2.0) Calcium 8.0 L (8.4-10.2) mg/dL Total Bilirubin 0.20 (0.2-1.3) mg/dL AST 20 (14-36) U/L ALT 13 (0-35) U/L Alkaline Phosphatase 76 (38-126) U/L Troponin I (0.000-0.033) ng/mL Serum Total Protein 5.4 L (6.3-8.2) g/dL Albumin 3.2 L (3.5-5.0) g/dL 03/10/25 03/10/25 03/10/25 Range/Units 07:46 11:43 11:43 WBC (3.98-10.04) x10^3/uL RBC (3.93-5.22) x10^6/uL Hgb 10.1 L (11.2-15.7) g/dL Hct 31.9 L (34.1-44.9) % MCV (79.4-94.8) fL MCH (25.6-32.2) pg MCHC (32.2-35.5) g/dL RDW (11.7-14.4) % Plt Count (182-369) x10^3/uL MPV (9.4-12.3) fL Sodium (135-145) mmol/L Potassium (3.5-5.1) mmol/L Chloride (98-107) mmol/L Carbon Dioxide (22-30) mmol/L Anion Gap (5-15) MEQ/L BUN (7-17) mg/dL Creatinine (0.52-1.04) mg/dL Estimated GFR ML/MIN Glucose (74-106) mg/dL Lactic Acid (0.4-2.0) Calcium (8.4-10.2) mg/dL Total Bilirubin (0.2-1.3) mg/dL AST (14-36) U/L ALT (0-35) U/L Alkaline Phosphatase (38-126) U/L Troponin I < 0.012 < 0.012 (0.000-0.033) ng/mL Serum Total Protein (6.3-8.2) g/dL Albumin (3.5-5.0) g/dL 03/10/25 03/10/25 Range/Units 15:53 19:43 WBC (3.98-10.04) x10^3/uL RBC (3.93-5.22) x10^6/uL Hgb (11.2-15.7) g/dL Hct (34.1-44.9) % MCV (79.4-94.8) fL MCH (25.6-32.2) pg MCHC (32.2-35.5) g/dL RDW (11.7-14.4) % Plt Count (182-369) x10^3/uL MPV (9.4-12.3) fL Sodium (135-145) mmol/L Potassium (3.5-5.1) mmol/L Chloride (98-107) mmol/L Carbon Dioxide (22-30) mmol/L Anion Gap (5-15) MEQ/L BUN (7-17) mg/dL Creatinine (0.52-1.04) mg/dL Estimated GFR ML/MIN Glucose (74-106) mg/dL Lactic Acid (0.4-2.0) Calcium (8.4-10.2) mg/dL Total Bilirubin (0.2-1.3) mg/dL AST (14-36) U/L ALT (0-35) U/L Alkaline Phosphatase (38-126) U/L Troponin I < 0.012 < 0.012 (0.000-0.033) ng/mL Serum Total Protein (6.3-8.2) g/dL Albumin (3.5-5.0) g/dL Microbiology 03/09/25 13:11 Urine Culture - Preliminary Urine, Catheterized NO GROWTH TO DATE - Radiology Impressions Radiology Exams & Impressions: Radiology Procedures Category Date Time Status ABDOMEN AND PELVIS W/0 CONTRAS [CT] Stat Exams 03/10/25 09:09 Completed ECHO W/2D AND DOPPLER [US] Routine Exams 03/10/25 07:37 Taken Assessment/Plan (1) Hypotension after procedure Status: Acute Assessment & Plan: -Likely multifactorial: relative hypovolemia, anesthetic-related vasodilation, possible vagal tone influence - No signs of ongoing hemorrhage or sepsis -CMP/cbc reviewed - hgb stable at 10.2 -Continue IV fluid boluses (288987 mL NS or LR) as needed to maintain MAP > 65 -Monitor vitals q1h while hypotensive -Trend H/H q68h to ensure stability -Monitor urine output Code(s): I95.81 - POSTPROCEDURAL HYPOTENSION (2) Bradycardia Current Visit: Yes Status: Acute Assessment & Plan: -HR in 50s without symptoms (dizziness, syncope, altered mentation)- Possibly vagally mediated or anesthetic residual -No medications known to cause bradycardia per current chart -patient states she did experience a bradycardic episode after GB surgery -Continue to monitor on tele -IVF - Check TSH -CMP reviewed - no electrolyte abnormalities Code(s): R00.1 - BRADYCARDIA, UNSPECIFIED (3) S/P total abdominal hysterectomy Current Visit: Yes Status: Acute Assessment & Plan: -Dr. Sellers following - no signs of infection at incision site -Pain control per bean roaster -avoid sedating pain meds Code(s): Z90.710 - ACQUIRED ABSENCE OF BOTH CERVIX AND UTERUS (4) Normocytic anemia due to blood loss Current Visit: Yes Status: Acute Assessment & Plan: -Likely expected post-surgical blood loss; no imaging evidence on CT abd/pelvis of hemorrhage; hemodynamically stable -continue to monitor H&H Code(s): D50.0 - IRON DEFICIENCY ANEMIA SECONDARY TO BLOOD LOSS (CHRONIC) (5) Bipolar 1 disorder Current Visit: Yes Status: Acute Assessment & Plan: -continue home meds Code(s): I95.81 - POSTPROCEDURAL HYPOTENSION (2) Bradycardia Status: Acute Code(s): R00.1 - BRADYCARDIA, UNSPECIFIED (3) S/P total abdominal hysterectomy Status: Acute Code(s): Z90.710 - ACQUIRED ABSENCE OF BOTH CERVIX AND UTERUS (4) Normocytic anemia due to blood loss Status: Acute Code(s): D50.0 - IRON DEFICIENCY ANEMIA SECONDARY TO BLOOD LOSS (CHRONIC) (5) Bipolar 1 disorder Status: Acute Code(s): F31.9 - BIPOLAR DISORDER, UNSPECIFIED <CATHI COLE - Last Filed: 03/11/25 18:34> History of Present Illness - Reason for Consult Requesting Provider: PRARIS SELLERS DO Consulting Provider: CATHI COLE MD History of Present Illness: is a 49 year old female. - Physical Exam Vital Signs: Vital Signs - 24 hr Temp Pulse Resp BP BP Pulse Ox 03/11/25 07:00 97.7 F 60 21 102/54 96 03/11/25 05:00 57 L 17 98/55 111/59 94 L 03/11/25 04:00 19 139/60 03/11/25 03:00 112/68 03/11/25 02:00 111/54 03/11/25 01:00 117/60 03/11/25 00:00 122/61 03/10/25 23:00 116/56 03/10/25 22:00 101/52 03/10/25 21:00 84/44 03/10/25 20:00 100.0 F 74 19 99/60 98 Results - Labs Lab/Micro Results: Lab Results-Last 24 Hours 04/29/25 04/30/25 05/01/25 Range/Units 13:11 19:43 05:11 WBC 7.9 (3.98-10.04) x10^3/uL RBC 3.69 L (3.93-5.22) x10^6/uL Hgb 9.6 L (11.2-15.7) g/dL Hct 30.0 L (34.1-44.9) % MCV 81.3 (79.4-94.8) fL MCH 26.0 (25.6-32.2) pg MCHC 32.0 L (32.2-35.5) g/dL RDW 14.0 (11.7-14.4) % Plt Count 229 (182-369) x10^3/uL MPV 10.3 (9.4-12.3) fL Gran % 67.8 (34.0-71.1) % Immature Gran % (Auto) 0.4 (0.001-0.429) % Nucleat RBC Rel Count 0.0 (0.00-0.2) % Eos # (Auto) 0.33 (0.04-0.36) x10^3/uL Immature Gran # (Auto) 0.03 (0.001-0.031) x10^3u/L Absolute Lymphs (auto) 1.48 (1.18-3.74) x10^3/uL Absolute Monos (auto) 0.69 (0.24-0.86) x10^3/uL Absolute Nucleated RBC 0.00 (0.00-0.012) x10^3u/L Lymphocytes % 18.6 L (19.3-51.7) % Monocytes % 8.7 (4.7-12.5) % Eosinophils % 4.2 (0.7-5.8) % Basophils % 0.3 (0.1-1.2) % Absolute Granulocytes 5.39 (1.56-6.13) x10^3/uL Basophils # 0.02 (0.01-0.08) x10^3/uL Sodium (135-145) mmol/L Potassium (3.5-5.1) mmol/L Chloride (98-107) mmol/L Carbon Dioxide (22-30) mmol/L Anion Gap (5-15) MEQ/L BUN (7-17) mg/dL Creatinine (0.52-1.04) mg/dL Estimated GFR ML/MIN Glucose (74-106) mg/dL Calcium (8.4-10.2) mg/dL Total Bilirubin (0.2-1.3) mg/dL AST (14-36) U/L ALT (0-35) U/L Alkaline Phosphatase (38-126) U/L Troponin I < 0.012 (0.000-0.033) ng/mL Serum Total Protein (6.3-8.2) g/dL Albumin (3.5-5.0) g/dL Surg PTH Specimen SEE COMMENTS 03/11/25 Range/Units 05:11 WBC (3.98-10.04) x10^3/uL RBC (3.93-5.22) x10^6/uL Hgb (11.2-15.7) g/dL Hct (34.1-44.9) % MCV (79.4-94.8) fL MCH (25.6-32.2) pg MCHC (32.2-35.5) g/dL RDW (11.7-14.4) % Plt Count (182-369) x10^3/uL MPV (9.4-12.3) fL Gran % (34.0-71.1) % Immature Gran % (Auto) (0.001-0.429) % Nucleat RBC Rel Count (0.00-0.2) % Eos # (Auto) (0.04-0.36) x10^3/uL Immature Gran # (Auto) (0.001-0.031) x10^3u/L Absolute Lymphs (auto) (1.18-3.74) x10^3/uL Absolute Monos (auto) (0.24-0.86) x10^3/uL Absolute Nucleated RBC (0.00-0.012) x10^3u/L Lymphocytes % (19.3-51.7) % Monocytes % (4.7-12.5) % Eosinophils % (0.7-5.8) % Basophils % (0.1-1.2) % Absolute Granulocytes (1.56-6.13) x10^3/uL Basophils # (0.01-0.08) x10^3/uL Sodium 138 (135-145) mmol/L Potassium 3.8 (3.5-5.1) mmol/L Chloride 107 (98-107) mmol/L Carbon Dioxide 26 (22-30) mmol/L Anion Gap 10.0 (5-15) MEQ/L BUN 6 L (7-17) mg/dL Creatinine 0.72 (0.52-1.04) mg/dL Estimated GFR 103.7 ML/MIN Glucose 94 (74-106) mg/dL Calcium 8.1 L (8.4-10.2) mg/dL Total Bilirubin 0.20 (0.2-1.3) mg/dL AST 22 (14-36) U/L ALT 11 (0-35) U/L Alkaline Phosphatase 80 (38-126) U/L Troponin I (0.000-0.033) ng/mL Serum Total Protein 5.4 L (6.3-8.2) g/dL Albumin 3.1 L (3.5-5.0) g/dL Surg PTH Specimen Microbiology 03/09/25 13:11 Urine Culture - Final Urine, Catheterized NO GROWTH - Radiology Impressions Radiology Exams & Impressions: Radiology Procedures Category Date Time Status ABDOMEN AND PELVIS W/0 CONTRAS [CT] Stat Exams 03/10/25 09:09 Completed ECHO W/2D AND DOPPLER [US] Routine Exams 03/10/25 07:37 Taken BEKAH Encounter - BEKAH Encounter Attestation BEKAH Encounter Attestation: "IhgarrypersonallyseenYANNA Andre on 03/10/2025 andhavediscussed pertinent aspects of their care with Aurora Azul agree with the history, physical exam (any modifications based on my personal exam will be noted below), assessment, and plan as outlined in original note. Please see immediately below for my summary of findings and additional assessment and plan along with any meaningful corrections/explanations to the Subjective/Objective portions of the BEKAH note will be noted." My portion of the encounter took place via telemedicine. This consultation was initially documented in a progress note, therefore it was rewritten with a consultation note template however date of consultation remains 03/10/2025. -Patient was seen in consultation after request from obgyn for persistent post op hypotension after an abdominal hysterectomy. We completed a work up to rule out cardiogenic, septic, hemorrhagic and thrombotic causes of shock and hypotension however entire work up has essentially been negative. Hypotension likely due to post surgical inflammation, and anesthesia effects. Patient gradually improving her blood pressures after fluid resuscitation. Okay to DC home if blood pressures continue to improve.
[2025-03-11 05:31] LABS: ALBUMIN 3.1 g/dL (3.5-5.0); BILIRUBIN,TOTAL 0.2 mg/dL (0.2-1.3); Calcium 8.1 mg/dL (8.4-10.2); Creatinine 1 0.72 mg/dL (0.52-1.04); EST GLOMERULAR FILTRATION RATE 103.7 ML/MIN; Potassium 3.8 mmol/L (3.5-5.1); Total Protein 5.4 g/dL (6.3-8.2)
[2025-03-11 07:18] VITALS: BP 102/54; PULSE 60; RESP 21; TEMP 97.7; O2SAT 96
--- NOTE | 2025-03-11 07:29 | PCM.NOTE ---
Date and Time: 03/11/25725 Subjective Assessment: pod 2 sp victoriano b/l salpingectomy pt resting in bed and doing well able to ambulate and tolerate diet. vss afebrile abd; soft incision c/d/intact ext; no clubbing cyanosis or edema hgb; 9.6 a/p sp victoriano b/l salpingectomy; hypotension vitals more stable with iv hydration stable for discharge today should fu in office in 1 wk cleared by house medicine for discharge after having been evaluated for hypotension Objective Data Vital Signs: Vital Signs - 24 hr Temp Pulse Resp BP BP Pulse Ox 03/11/25 07:00 97.7 F 60 21 102/54 96 03/11/25 05:00 57 L 17 98/55 111/59 94 L 03/11/25 04:00 19 139/60 03/11/25 03:00 112/68 03/11/25 02:00 111/54 03/11/25 01:00 117/60 03/11/25 00:00 122/61 03/10/25 23:00 116/56 03/10/25 22:00 101/52 03/10/25 21:00 84/44 03/10/25 20:00 100.0 F 74 19 99/60 98 03/10/25 15:51 97.7 F 80 16 89/53 95 03/10/25 13:00 55 L 16 100/52 97 03/10/25 12:00 98.2 F 55 L 16 89/51 95 03/10/25 11:10 98.2 F 55 L 16 89/51 95 03/10/25 09:30 85/58 Pain Assessment - Last Documented Pain Intensity [Anterior] 4 Pain Intensity 3 Pain Scale Used 0-10 Pain Scale Intake and Output: Intake & Output 03/08/25 03/09/25 03/10/25 03/11/25 11:59 11:59 11:59 11:59 Intake Total 2538 Output Total 1850 Balance 688 Weight 89.9 kg 89.3 kg Lab Results: Lab Results-Last 24 Hours 03/10/25 03/10/25 03/10/25 Range/Units 07:34 07:46 11:43 WBC (3.98-10.04) x10^3/uL RBC (3.93-5.22) x10^6/uL Hgb (11.2-15.7) g/dL Hct (34.1-44.9) % MCV (79.4-94.8) fL MCH (25.6-32.2) pg MCHC (32.2-35.5) g/dL RDW (11.7-14.4) % Plt Count (182-369) x10^3/uL MPV (9.4-12.3) fL Gran % (34.0-71.1) % Immature Gran % (Auto) (0.001-0.429) % Nucleat RBC Rel Count (0.00-0.2) % Eos # (Auto) (0.04-0.36) x10^3/uL Immature Gran # (Auto) (0.001-0.031) x10^3u/L Absolute Lymphs (auto) (1.18-3.74) x10^3/uL Absolute Monos (auto) (0.24-0.86) x10^3/uL Absolute Nucleated RBC (0.00-0.012) x10^3u/L Lymphocytes % (19.3-51.7) % Monocytes % (4.7-12.5) % Eosinophils % (0.7-5.8) % Basophils % (0.1-1.2) % Absolute Granulocytes (1.56-6.13) x10^3/uL Basophils # (0.01-0.08) x10^3/uL Sodium (135-145) mmol/L Potassium (3.5-5.1) mmol/L Chloride (98-107) mmol/L Carbon Dioxide (22-30) mmol/L Anion Gap (5-15) MEQ/L BUN (7-17) mg/dL Creatinine (0.52-1.04) mg/dL Estimated GFR ML/MIN Glucose (74-106) mg/dL Lactic Acid 0.6 (0.4-2.0) Calcium (8.4-10.2) mg/dL Total Bilirubin (0.2-1.3) mg/dL AST (14-36) U/L ALT (0-35) U/L Alkaline Phosphatase (38-126) U/L Troponin I < 0.012 < 0.012 (0.000-0.033) ng/mL Serum Total Protein (6.3-8.2) g/dL Albumin (3.5-5.0) g/dL 03/10/25 03/10/25 03/10/25 Range/Units 11:43 15:53 19:43 WBC (3.98-10.04) x10^3/uL RBC (3.93-5.22) x10^6/uL Hgb 10.1 L (11.2-15.7) g/dL Hct 31.9 L (34.1-44.9) % MCV (79.4-94.8) fL MCH (25.6-32.2) pg MCHC (32.2-35.5) g/dL RDW (11.7-14.4) % Plt Count (182-369) x10^3/uL MPV (9.4-12.3) fL Gran % (34.0-71.1) % Immature Gran % (Auto) (0.001-0.429) % Nucleat RBC Rel Count (0.00-0.2) % Eos # (Auto) (0.04-0.36) x10^3/uL Immature Gran # (Auto) (0.001-0.031) x10^3u/L Absolute Lymphs (auto) (1.18-3.74) x10^3/uL Absolute Monos (auto) (0.24-0.86) x10^3/uL Absolute Nucleated RBC (0.00-0.012) x10^3u/L Lymphocytes % (19.3-51.7) % Monocytes % (4.7-12.5) % Eosinophils % (0.7-5.8) % Basophils % (0.1-1.2) % Absolute Granulocytes (1.56-6.13) x10^3/uL Basophils # (0.01-0.08) x10^3/uL Sodium (135-145) mmol/L Potassium (3.5-5.1) mmol/L Chloride (98-107) mmol/L Carbon Dioxide (22-30) mmol/L Anion Gap (5-15) MEQ/L BUN (7-17) mg/dL Creatinine (0.52-1.04) mg/dL Estimated GFR ML/MIN Glucose (74-106) mg/dL Lactic Acid (0.4-2.0) Calcium (8.4-10.2) mg/dL Total Bilirubin (0.2-1.3) mg/dL AST (14-36) U/L ALT (0-35) U/L Alkaline Phosphatase (38-126) U/L Troponin I < 0.012 < 0.012 (0.000-0.033) ng/mL Serum Total Protein (6.3-8.2) g/dL Albumin (3.5-5.0) g/dL 03/11/25 03/11/25 Range/Units 05:11 05:11 WBC 7.9 (3.98-10.04) x10^3/uL RBC 3.69 L (3.93-5.22) x10^6/uL Hgb 9.6 L (11.2-15.7) g/dL Hct 30.0 L (34.1-44.9) % MCV 81.3 (79.4-94.8) fL MCH 26.0 (25.6-32.2) pg MCHC 32.0 L (32.2-35.5) g/dL RDW 14.0 (11.7-14.4) % Plt Count 229 (182-369) x10^3/uL MPV 10.3 (9.4-12.3) fL Gran % 67.8 (34.0-71.1) % Immature Gran % (Auto) 0.4 (0.001-0.429) % Nucleat RBC Rel Count 0.0 (0.00-0.2) % Eos # (Auto) 0.33 (0.04-0.36) x10^3/uL Immature Gran # (Auto) 0.03 (0.001-0.031) x10^3u/L Absolute Lymphs (auto) 1.48 (1.18-3.74) x10^3/uL Absolute Monos (auto) 0.69 (0.24-0.86) x10^3/uL Absolute Nucleated RBC 0.00 (0.00-0.012) x10^3u/L Lymphocytes % 18.6 L (19.3-51.7) % Monocytes % 8.7 (4.7-12.5) % Eosinophils % 4.2 (0.7-5.8) % Basophils % 0.3 (0.1-1.2) % Absolute Granulocytes 5.39 (1.56-6.13) x10^3/uL Basophils # 0.02 (0.01-0.08) x10^3/uL Sodium 138 (135-145) mmol/L Potassium 3.8 (3.5-5.1) mmol/L Chloride 107 (98-107) mmol/L Carbon Dioxide 26 (22-30) mmol/L Anion Gap 10.0 (5-15) MEQ/L BUN 6 L (7-17) mg/dL Creatinine 0.72 (0.52-1.04) mg/dL Estimated GFR 103.7 ML/MIN Glucose 94 (74-106) mg/dL Lactic Acid (0.4-2.0) Calcium 8.1 L (8.4-10.2) mg/dL Total Bilirubin 0.20 (0.2-1.3) mg/dL AST 22 (14-36) U/L ALT 11 (0-35) U/L Alkaline Phosphatase 80 (38-126) U/L Troponin I (0.000-0.033) ng/mL Serum Total Protein 5.4 L (6.3-8.2) g/dL Albumin 3.1 L (3.5-5.0) g/dL Radiology Exams: Radiology Procedures Category Date Time Status ABDOMEN AND PELVIS W/0 CONTRAS [CT] Stat Exams 03/10/25 09:09 Completed ECHO W/2D AND DOPPLER [US] Routine Exams 03/10/25 07:37 Taken Medications: Medications Generic Name Dose Route Start Last Admin Trade Name Freq PRN Reason Stop Dose Admin Buspirone HCl 15 mg 03/09/25 22:00 03/10/25 22:05 Buspirone Hcl 5 Mg Tablet PO 04/08/25 21:59 15 mg TID SANDEEP Administration Docusate Sodium 100 mg 03/09/25 22:00 03/10/25 22:05 Docusate Sodium 100 Mg Capsule PO 04/08/25 21:59 100 mg BID SANDEEP Administration Enoxaparin Sodium 40 mg 03/10/25 09:00 03/10/25 08:46 Enoxaparin Sodium 40 Mg/0.4 Ml Syringe SQ 04/09/25 08:59 40 mg DAILY SANDEEP Administration Lactated Ringer's 1,000 mls @ 100 mls/hr 03/09/25 14:30 03/11/25 06:39 Lactated Ringers IV 04/08/25 14:29 125 mls/hr .Q10H SANDEEP Administration Ceftriaxone Sodium 1 gm in 100 mls @ 200 mls/hr 03/10/25 10:00 03/10/25 10:20 Rocephin 1 Gm / 100 Ml Nacl IV 04/09/25 09:59 200 mls/hr Q24H10 SANDEEP Administration Ketorolac Tromethamine 30 mg 03/09/25 14:20 03/11/25 03:20 Ketorolac Tromethamine 30 Mg/Ml Inj IV 03/14/25 14:19 30 mg Q6H PRN PRN Administration BREAKTHRU PAIN Ketorolac Tromethamine 10 mg 03/09/25 16:03 Ketorolac Tromethamine 10 Mg Tablet PO 03/14/25 16:02 Q8HPRN PRN PAIN Lamotrigine 200 mg 03/09/25 22:00 03/10/25 22:05 Lamotrigine 100 Mg Tab PO 04/08/25 21:59 200 mg BID SANDEEP Administration Metoclopramide HCl 10 mg 03/09/25 15:00 03/11/25 06:13 Metoclopramide Hcl 10 Mg/2 Ml Vial IV 04/08/25 14:59 10 mg Q8HT SANDEEP Administration Naloxone HCl 0.2 - 0.4 mg 03/09/25 14:30 Naloxone Hcl 0.4 Mg/Ml Ml IV 04/08/25 14:29 PRN PRN RESP. DEPRESSION / DLOC Nicotine 14 mg 03/09/25 17:00 03/10/25 09:26 Nicotine 14 Mg/Patch Patch TOP 04/08/25 16:59 14 mg Q24H10 SANDEEP Administration Ondansetron HCl 4 mg 03/09/25 14:27 Ondansetron Hcl 4 Mg/2 Ml Vial IV 04/08/25 14:26 Q6H PRN PRN NAUSEA/VOMITING Lurasidone 20mg 1 each 03/10/25 17:00 03/10/25 18:47 Tablet PO 04/09/25 16:59 1 each DINNER SANDEEP Administration Simethicone 80 mg 03/09/25 15:00 03/11/25 06:13 Simethicone 80 Mg Tab.Chew PO 04/08/25 14:59 80 mg Q8HT SANDEEP Administration Discontinued Medications Generic Name Dose Route Start Last Admin Trade Name Danteq PRN Reason Stop Dose Admin Celecoxib 200 mg 03/09/25 08:34 03/09/25 08:56 Celecoxib 100 Mg Capsule PO 03/09/25 08:35 200 mg 2HRPRIOR ONE Administration Celecoxib Confirm 03/09/25 08:53 Celecoxib 100 Mg Capsule Administered 03/09/25 08:54 Dose 200 mg .ROUTE .STK-MED ONE Fentanyl Citrate Confirm 03/09/25 11:40 Fentanyl Citrate 100 Mcg/2 Ml* Vial Administered 03/09/25 11:41 Dose 100 mcg .ROUTE .STK-MED ONE Fentanyl Citrate Confirm 03/09/25 14:34 Fentanyl Citrate 100 Mcg/2 Ml* Vial Administered 03/09/25 14:35 Dose 100 mcg .ROUTE .STK-MED ONE Gabapentin 600 mg 03/09/25 08:34 03/09/25 08:56 Gabapentin 300 Mg Capsule PO 03/09/25 08:35 600 mg 2HRPRIOR ONE Administration Gabapentin Confirm 03/09/25 08:53 Gabapentin 300 Mg Capsule Administered 03/09/25 08:54 Dose 600 mg .ROUTE .STK-MED ONE Glycopyrrolate Confirm 03/09/25 13:55 Glycopyrrolate 0.2 Mg/1ml Sdv Administered 03/09/25 13:56 Dose 0.4 mg .ROUTE .STK-MED ONE Hydromorphone/Sodium Chloride 0 mg 03/09/25 14:30 Hydromorphone/Nacl/Pf 30 Mg/30 Ml Director Internal Control.Syring IV 04/08/25 14:29 .STANDARD PACE DOSING PRN Lactated Ringer's 1,000 mls @ 50 mls/hr 03/09/25 09:00 03/09/25 08:56 Lactated Ringers IV 04/08/25 08:59 50 mls/hr .Q20H SANDEEP Administration Lactated Ringer's Confirm 03/09/25 08:53 Lactated Ringers Administered 03/09/25 08:54 Dose 1,000 mls @ ud IV .STK-MED ONE Lactated Ringer's Confirm 03/09/25 13:57 Lactated Ringers Administered 03/09/25 13:58 Dose 1,000 mls @ ud IV .STK-MED ONE Cefazolin Sodium 2 gm in 100 mls @ 200 mls/hr 03/09/25 16:00 03/10/25 00:26 Cefazolin 2 Gm/100 Ml Nacl IV 03/10/25 00:29 200 mls/hr Q8H SANDEEP Administration Lactated Ringer's Confirm 03/09/25 15:11 Lactated Ringers Administered 03/09/25 15:12 Dose 1,000 mls @ ud IV .STK-MED ONE Sodium Chloride 1,000 mls @ 999 mls/hr 03/10/25 07:39 03/10/25 08:48 Sodium Chloride 0.9% 1000 Ml IV 03/10/25 08:39 999 mls/hr .Q1H1M STA Administration Ketorolac Tromethamine Confirm 03/09/25 13:57 Ketorolac Tromethamine 30 Mg/Ml Inj Administered 03/09/25 13:58 Dose 30 mg .ROUTE .STK-MED ONE Lidocaine HCl Confirm 03/09/25 13:32 Lidocaine - Mpf 2% 5 Ml Vial Administered 03/09/25 13:33 Dose 5 ml .ROUTE .STK-MED ONE Midazolam HCl Confirm 03/09/25 11:40 Midazolam Hcl 2 Mg/2 Ml Vial Administered 03/09/25 11:41 Dose 2 mg .ROUTE .STK-MED ONE Miscellaneous Information 1 each 03/09/25 16:30 Medication Intervention 1 Each Each 04/08/25 16:29 .RN TO CHECK SANDEEP Morphine Sulfate 2 mg 03/09/25 16:04 Morphine Sulfate 2 Mg/Ml Inj IV 03/14/25 16:03 Q4H PRN PRN PAIN Morphine Sulfate 3 mg 03/09/25 16:10 Morphine Sulfate 4 Mg/Ml Injection IV 03/14/25 16:09 Q4H PRN PRN MODERATE PAIN Morphine Sulfate 4 mg 03/09/25 16:08 Morphine Sulfate 4 Mg/Ml Injection IV 03/14/25 16:07 Q4H PRN PRN SEVERE PAIN Non-Formulary Medication 1 each 03/09/25 17:00 03/09/25 18:05 Non-Formulary Drug 1 Each Each PO 04/08/25 16:59 1 each 1700 SANDEEP Administration Ondansetron HCl Confirm 03/09/25 13:57 Ondansetron Hcl 4 Mg/2 Ml Vial Administered 03/09/25 13:58 Dose 4 mg .ROUTE .STK-MED ONE Propofol Confirm 03/09/25 11:40 Propofol 200 Mg/20 Ml Vial Administered 03/09/25 11:41 Dose 200 mg IV .STK-MED ONE Rocuronium Adrian Confirm 03/09/25 11:40 Rocuronium Adrian 50 Mg/5 Ml Vial Administered 03/09/25 11:41 Dose 50 mg IV .STK-MED ONE Ropivacaine Confirm 03/09/25 14:04 Ropivacaine Hcl 5 Mg/Ml 30ml Vial Administered 03/09/25 14:05 Dose 150 mg .ROUTE .STK-MED ONE Scopolamine HBr 1.5 mg 03/09/25 08:34 03/09/25 08:56 Scopolamine 1.5 Mg Patch TOP 03/09/25 08:35 1.5 mg STAT ONE Administration Scopolamine HBr Confirm 03/09/25 08:53 Scopolamine 1.5 Mg Patch Administered 03/09/25 08:54 Dose 1.5 mg .ROUTE .STK-MED ONE Sugammadex Sodium Confirm 03/09/25 13:57 Sugammadex Sodium 200 Mg/2 Ml Vial Administered 03/09/25 13:58 Dose 200 mg IV .STK-MED ONE Assessment/Plan (1) S/P total abdominal hysterectomy Current Visit: Yes Status: Acute Code(s): Z90.710 - ACQUIRED ABSENCE OF BOTH CERVIX AND UTERUS (2) Hypotension after procedure Current Visit: Yes Status: Acute Code(s): I95.81 - POSTPROCEDURAL HYPOTENSION (3) Bradycardia Current Visit: Yes Status: Acute Code(s): R00.1 - BRADYCARDIA, UNSPECIFIED
--- NOTE | 2025-03-11 07:36 | PCM.DS ---
Discharge Summary Date of Admission: 03/09/25 08:39 Admitting Physician: PARRIS RAMAN DO Primary Care Provider: DARA PABLO DO Allergies Allergies Iodinated Contrast Media [Iodinated Contrast- Oral and IV Dye] Allergy (Severe, Verified 01/09/20 01:02) Tightness of Throat Thorat closes shut metronidazole [From Flagyl] Allergy (Severe, Verified 01/09/20 01:02) Tightness of Throat clindamycin Allergy (Intermediate, Verified 01/09/20 01:02) Hives erythromycin base Allergy (Intermediate, Verified 01/09/20 01:02) Hives Penicillins Allergy (Mild, Verified 01/09/20 01:02) Hives Rash [facility] Hospital Summary - Hospital Course Hospital Course: pt admitted on march 09 after having undergone total abdominal hysterectomy with b/l salpingectomy secondary to fibroid uterus and underwent procedure without complication. during postop period, pt experienced hypotension and hydration was increased as house medicine was called in for evaluation. labs drawn for evaluation of underlying cardiac issue where troponin levels drawn and were normal, echo done and pending and ct scan of abd/pelvis done and was normal. pt received further hydration and postop day 2 doing very well with resolving bp and pulse. pt had hgb at 9.6 prior to being discharged and incision was clean dry and intact. pt was advised to fu in office in 1 wk for postop check and was given specific instructions to call me for any issues that she may have upon discharge. all questions answered to her satisfaction and at this time was cleared by house medicine for discharge and was given rx of percocet sent to [facility] for pain management.. - Vitals & Intake/Output Vital Signs: Vital Signs Temperature 97.7 F 03/11/25 07:00 Pulse Rate 60 03/11/25 07:00 Respiratory Rate 21 03/11/25 07:00 Blood Pressure 102/54 03/11/25 07:00 O2 Sat by Pulse Oximetry 96 03/11/25 07:00 Intake & Output: Intake & Output 03/08/25 03/09/25 03/10/25 03/11/25 11:59 11:59 11:59 11:59 Intake Total 2538 Output Total 1850 Balance 688 Weight 89.9 kg 89.3 kg - Lab Result Diagrams: 03/11/25 05:11 03/11/25 05:11 Lab Results-Last 24 Hrs: Lab Results-Last 24 Hours 03/10/25 03/10/25 03/10/25 Range/Units 07:34 07:46 11:43 WBC (3.98-10.04) x10^3/uL RBC (3.93-5.22) x10^6/uL Hgb (11.2-15.7) g/dL Hct (34.1-44.9) % MCV (79.4-94.8) fL MCH (25.6-32.2) pg MCHC (32.2-35.5) g/dL RDW (11.7-14.4) % Plt Count (182-369) x10^3/uL MPV (9.4-12.3) fL Gran % (34.0-71.1) % Immature Gran % (Auto) (0.001-0.429) % Nucleat RBC Rel Count (0.00-0.2) % Eos # (Auto) (0.04-0.36) x10^3/uL Immature Gran # (Auto) (0.001-0.031) x10^3u/L Absolute Lymphs (auto) (1.18-3.74) x10^3/uL Absolute Monos (auto) (0.24-0.86) x10^3/uL Absolute Nucleated RBC (0.00-0.012) x10^3u/L Lymphocytes % (19.3-51.7) % Monocytes % (4.7-12.5) % Eosinophils % (0.7-5.8) % Basophils % (0.1-1.2) % Absolute Granulocytes (1.56-6.13) x10^3/uL Basophils # (0.01-0.08) x10^3/uL Sodium (135-145) mmol/L Potassium (3.5-5.1) mmol/L Chloride (98-107) mmol/L Carbon Dioxide (22-30) mmol/L Anion Gap (5-15) MEQ/L BUN (7-17) mg/dL Creatinine (0.52-1.04) mg/dL Estimated GFR ML/MIN Glucose (74-106) mg/dL Lactic Acid 0.6 (0.4-2.0) Calcium (8.4-10.2) mg/dL Total Bilirubin (0.2-1.3) mg/dL AST (14-36) U/L ALT (0-35) U/L Alkaline Phosphatase (38-126) U/L Troponin I < 0.012 < 0.012 (0.000-0.033) ng/mL Serum Total Protein (6.3-8.2) g/dL Albumin (3.5-5.0) g/dL 03/10/25 03/10/25 03/10/25 Range/Units 11:43 15:53 19:43 WBC (3.98-10.04) x10^3/uL RBC (3.93-5.22) x10^6/uL Hgb 10.1 L (11.2-15.7) g/dL Hct 31.9 L (34.1-44.9) % MCV (79.4-94.8) fL MCH (25.6-32.2) pg MCHC (32.2-35.5) g/dL RDW (11.7-14.4) % Plt Count (182-369) x10^3/uL MPV (9.4-12.3) fL Gran % (34.0-71.1) % Immature Gran % (Auto) (0.001-0.429) % Nucleat RBC Rel Count (0.00-0.2) % Eos # (Auto) (0.04-0.36) x10^3/uL Immature Gran # (Auto) (0.001-0.031) x10^3u/L Absolute Lymphs (auto) (1.18-3.74) x10^3/uL Absolute Monos (auto) (0.24-0.86) x10^3/uL Absolute Nucleated RBC (0.00-0.012) x10^3u/L Lymphocytes % (19.3-51.7) % Monocytes % (4.7-12.5) % Eosinophils % (0.7-5.8) % Basophils % (0.1-1.2) % Absolute Granulocytes (1.56-6.13) x10^3/uL Basophils # (0.01-0.08) x10^3/uL Sodium (135-145) mmol/L Potassium (3.5-5.1) mmol/L Chloride (98-107) mmol/L Carbon Dioxide (22-30) mmol/L Anion Gap (5-15) MEQ/L BUN (7-17) mg/dL Creatinine (0.52-1.04) mg/dL Estimated GFR ML/MIN Glucose (74-106) mg/dL Lactic Acid (0.4-2.0) Calcium (8.4-10.2) mg/dL Total Bilirubin (0.2-1.3) mg/dL AST (14-36) U/L ALT (0-35) U/L Alkaline Phosphatase (38-126) U/L Troponin I < 0.012 < 0.012 (0.000-0.033) ng/mL Serum Total Protein (6.3-8.2) g/dL Albumin (3.5-5.0) g/dL 03/11/25 03/11/25 Range/Units 05:11 05:11 WBC 7.9 (3.98-10.04) x10^3/uL RBC 3.69 L (3.93-5.22) x10^6/uL Hgb 9.6 L (11.2-15.7) g/dL Hct 30.0 L (34.1-44.9) % MCV 81.3 (79.4-94.8) fL MCH 26.0 (25.6-32.2) pg MCHC 32.0 L (32.2-35.5) g/dL RDW 14.0 (11.7-14.4) % Plt Count 229 (182-369) x10^3/uL MPV 10.3 (9.4-12.3) fL Gran % 67.8 (34.0-71.1) % Immature Gran % (Auto) 0.4 (0.001-0.429) % Nucleat RBC Rel Count 0.0 (0.00-0.2) % Eos # (Auto) 0.33 (0.04-0.36) x10^3/uL Immature Gran # (Auto) 0.03 (0.001-0.031) x10^3u/L Absolute Lymphs (auto) 1.48 (1.18-3.74) x10^3/uL Absolute Monos (auto) 0.69 (0.24-0.86) x10^3/uL Absolute Nucleated RBC 0.00 (0.00-0.012) x10^3u/L Lymphocytes % 18.6 L (19.3-51.7) % Monocytes % 8.7 (4.7-12.5) % Eosinophils % 4.2 (0.7-5.8) % Basophils % 0.3 (0.1-1.2) % Absolute Granulocytes 5.39 (1.56-6.13) x10^3/uL Basophils # 0.02 (0.01-0.08) x10^3/uL Sodium 138 (135-145) mmol/L Potassium 3.8 (3.5-5.1) mmol/L Chloride 107 (98-107) mmol/L Carbon Dioxide 26 (22-30) mmol/L Anion Gap 10.0 (5-15) MEQ/L BUN 6 L (7-17) mg/dL Creatinine 0.72 (0.52-1.04) mg/dL Estimated GFR 103.7 ML/MIN Glucose 94 (74-106) mg/dL Lactic Acid (0.4-2.0) Calcium 8.1 L (8.4-10.2) mg/dL Total Bilirubin 0.20 (0.2-1.3) mg/dL AST 22 (14-36) U/L ALT 11 (0-35) U/L Alkaline Phosphatase 80 (38-126) U/L Troponin I (0.000-0.033) ng/mL Serum Total Protein 5.4 L (6.3-8.2) g/dL Albumin 3.1 L (3.5-5.0) g/dL Micro Results-Entire Visit: Microbiology 03/09/25 13:11 Urine Culture - Preliminary Urine, Catheterized NO GROWTH TO DATE - Radiology Exams Ordered Rad Exams-Entire Visit: Radiology Procedures Category Date Time Status ABDOMEN AND PELVIS W/0 CONTRAS [CT] Stat Exams 03/10/25 09:09 Completed ECHO W/2D AND DOPPLER [US] Routine Exams 03/10/25 07:37 Taken - Procedures and Test Procedures and Tests throughout Hospitalization: Therapy Orders & Screens 03/09/25 15:20 Incentive Spirometry ROUTINE Comment: Diagnosis: menorrhea 03/10/25 07:34 EKG STAT Comment: Diagnosis: Hysterectomy Final Diagnosis/Problem List - Final Discharge Diagnosis/Problem (1) S/P total abdominal hysterectomy Current Visit: Yes Status: Acute Code(s): Z90.710 - ACQUIRED ABSENCE OF BOTH CERVIX AND UTERUS (2) Hypotension after procedure Current Visit: Yes Status: Acute Code(s): I95.81 - POSTPROCEDURAL HYPOTENSION (3) Bradycardia Current Visit: Yes Status: Acute Code(s): R00.1 - BRADYCARDIA, UNSPECIFIED - Discharge Disposition: Home, Self-Care Condition: Stable Prescriptions: New Oxycodone HCl/Acetaminophen [Percocet 5-325 mg Tablet] 1 each PO Q6H PRN PRN #20 tablet MDD 4 PRN Reason: Moderate To Severe Pain No Action lamoTRIgine [Lamictal] 200 mg PO BID Buspirone HCl 15 mg PO TID Lurasidone HCl [Latuda] 20 mg PO 1700 Follow up with: DARA PABLO DO [Primary Care Provider, [facility]ILY [facility]] PARRIS RAMAN DO [ACTIVE STAFF, OBSTETRICS-GYNECOLOGY] - 1 Week Referral Note: should fu in office next saturday should call me for any issues she may have upon discharge no heavy lifting no intercourse for 6 wks may resume driving in 10 days nothing per vagina for 4-6 wks
--- NOTE | 2025-03-11 09:20 | OP ---
SURGERY DATE/TIME: 03/09/2025 [id number] PREOPERATIVE DIAGNOSIS: Symptomatic uterine fibroid uterus. POSTOPERATIVE DIAGNOSES: Symptomatic uterine fibroid uterus. PROCEDURES: 1) Total abdominal hysterectomy. 2) Bilateral salpingectomy. SURGEON: Mika Sellers DO ASSISTANTS: Cassandra Uriostegui ANESTHESIA: General. QUANTITATIVE BLOOD LOSS: 250 mL. COMPLICATIONS: None. INDICATIONS: The risks, benefits, indications, and alternatives of the procedure were reviewed with the patient prior to the procedure. The patient understood the risks of infection, bleeding, bowel injury, bladder injury, ureteral injury, pelvic infection, thromboembolic disorder associated with the surgery including hot flashes and menopausal symptoms that may occur as well. She understands all risks and desires to have this surgery as a possible means to alleviate her current medical condition. DESCRIPTION OF PROCEDURE AND FINDINGS: At this point, the patient was taken to the operating room where she was placed in the supine position and where she was given general anesthesia. She was prepared and draped in usual sterile fashion. A Pfannenstiel skin incision was made approximately 2 cm above the symphysis pubis and extended sharply to the rectus fascia. The fascia was then incised bilaterally with a curved Epps scissors, and the muscles of the anterior abdominal wall were in the midline by sharp and blunt dissection. The peritoneum was then grasped between 2 pickups, elevated, and entered sharply with the Metzenbaum scissors. The pelvis was then examined. It was noted have an approximately 14-weeks size uterus with multiple fibroids located throughout the uterus subserosally and intramurally. At this point, an O'Tomás-O'Valerio retractor was placed into the incision and the bowel packed away with moistened laparotomy sponges. The tenaculum was then placed on the fundus of the uterus as a means to elevate the uterus at this point. From this point, the LigaSure was then used and applied to the left uteroovarian ligament where it was clamped, coagulated and cut and down to the round ligament toward the uterine vasculature on its side where it too was clamped, coagulated and cut and hemostasis was obtained. The same procedure was performed on the right side where the right uteroovarian ligament was clamped, coagulated and cut with a LigaSure, taken down to the round ligament toward the uterine vasculature where it too was skeletonized and clamped, coagulated and cut and hemostasis was obtained. From this point, the anterior leaflet of the broad ligament was incised along the bladder reflection to the midline on both sides. The bladder was then gently dissected off the lower uterine segment in the cervix with a sponge stick. At this point, the uterus was then amputated from its cervical stump with the aid of cautery. At this point, again, the uterine arteries were skeletonized bilaterally, clamped with Jose clamp, transected, and suture ligated with 0 Vicryl suture, and again, hemostasis was assured. The uterosacral ligaments were clamped on both sides, transected, and suture ligated in a similar fashion. The cervix was then removed with the cautery. The vaginal cuff angles were closed with [id number] stitches of 0 Vicryl and were transected at its lateral, cardinal and sacral ligaments. The remainder of the vaginal cuff was closed with a series of interrupted Vicryl [id number] sutures. Again, hemostasis was assured. The cuff was then irrigated copiously with warm normal saline. All laps, sponges, and instruments were removed from the patient's abdomen. At this point, the muscles and peritoneum were closed in an interrupted fashion using 2-0 chromic suture. The fascia was closed with a running 0 Vicryl suture. Subcutaneous layer was closed with 3-0 Vicryl suture. The skin was closed with absorbable betsy called Insorb. Sponge, lap, needle, and instrument counts were correct x2. The patient was then taken to the recovery room in stable condition.
== END 2025-03-11 11:29 | disposition home or self-care (01) ==
LOC: SDC 08:38 → MED SURG 08:39
PROVIDERS: ADMIT Obstetrics & Gynecology; ATTEND Obstetrics & Gynecology
DX: I95.81 Postprocedural hypotension (principal); R00.1 Bradycardia, unspecified; D50.0 Iron deficiency anemia secondary to blood loss (chronic); F31.9 Bipolar disorder, unspecified; D25.9 Leiomyoma of uterus, unspecified
CPT/HCPCS: 36415; 58150; 74176; 76937; 80053; 81001; 81025; 83605; 84484; 85014; 85018; 85025; 85027; 86901; 87040; 87086; 93005; 93306; G0378; J0690; J0696; J1650; J1885; J2250; J2405; J2704; J2795; J3010; L0625; Q3014; A9270-GY